=== PATIENT | male | born 1955 | race Caucasian/White ===

== ENCOUNTER 2017-07-29 15:36 | Inpatient (IN) | payer BC, OTHER ==
[2017-07-29] MEDS ORDERED: Ondansetron 4 MG/2 ML SDV IVPUSH ONE (16:08)
[2017-07-29] MEDS ORDERED: Sodium Chloride 0.9% 10 ML Syringe FLUSH PRN ×2 (16:08→17:38)
[2017-07-29] MEDS ORDERED: HYDROmorphone 1 MG/ML Syringe IVPUSH ONE ×3 (16:08→19:41)
[2017-07-29] MEDS ORDERED: Sodium Chloride 0.9% 1,000 ML IV SCH ×2 (16:15→20:45)
[2017-07-29] MEDS ORDERED: Iopamidol 612 MG/ML 150 ML Bottle IVPUSH ONE (17:38)
[2017-07-29] MEDS ORDERED: Diatrizoate Meglumine/Diatrizoate Sodium 37% 120 ML Bottle PO ONE (17:38)
--- NOTE | 2017-07-29 17:45 | EDM.PDOC ---
ED HPI GENERAL MEDICAL PROBLEM - General Chief Complaint: Abdominal Pain Stated Complaint: ABD PAIN Time Seen by Provider: 07/29/17 16:20 Source of Information: Reports: Patient History Limitations: Reports: No Limitations - History of Present Illness INITIAL COMMENTS - FREE TEXT/NARRATIVE: 62-year-old male presents for evaluation and treatment of abdominal pain. Patient reports abdominal pain began around 1 AM this morning. Reports it is primarily in the lower abdomen but states his entire abdomen is involved. Reports associated symptoms of a decreased appetite. No fevers, nausea or vomiting. States he's had some looser bowel this morning. No blood in his stool. Patient reports he's had diverticulitis twice in the past. The use records show that he was hospitalized in December 2014 for diverticulitis. Questionable perforation on CT. Patient reports that he had a colonoscopy. estimates it was about 3 years ago. Primary care provider is Dr. Fairbanks. Patient was reports he was ill first week of the month with influenza. Diagnosed with influenza type B. His symptoms have improved since then. Lower Abdominal Pain Score (Numeric/FACES): 10 - Related Data Allergies Allergy/AdvReac Type Severity Reaction Status Date / Time No Known Allergies Allergy Verified 07/29/17 15:50 Home Meds: Home Meds Multivitamin [Daily Multiple Vitamin] 1 tab PO DAILY 10/03/14 [History] Aspirin [Halfprin] 81 mg PO DAILY 01/22/15 [History] Psyllium with Sucrose [Metamucil] 1 packet PO DAILY 03/04/16 [History] Past Medical History HEENT History: Reports: Impaired Vision Respiratory History: Reports: PE Gastrointestinal History: Reports: Diverticulosis Other Gastrointestinal History: Diverticulosis Other Musculoskeletal History: broken back Endocrine/Metabolic History: Reports: Obesity/BMI 30+ - Past Surgical History Other HEENT Surgeries/Procedures: Pt wears glasses Musculoskeletal Surgical History: Reports: Knee Replacement Other Musculoskeletal Surgeries/Procedures:: Neck surgery, wrist surgery Social & Family History - Family History Family Medical History: Noncontributory - Tobacco Use Smoking Status *Q: Never Smoker Years of Tobacco use: 20 Packs/Tins Daily: 0.2 Used Tobacco, but Quit: No Month Tobacco Last Used: June 2014 Second Hand Smoke Exposure: No - Alcohol Use Days Per Week of Alcohol Use: 0 (remote hx of heavy EtOH use ) - Recreational Drug Use Recreational Drug Use: No - Living Situation & Occupation Living situation: Reports: with Significant Other Occupation: Employed ED ROS GENERAL - Review of Systems Review Of Systems: See Below Constitutional: Reports: Decreased Appetite. Denies: Fever, Chills GI/Abdominal: Reports: Abdominal Pain (lower abdomen). Denies: Constipation, Diarrhea, Hematochezia, Melena, Nausea, Vomiting : Reports: No Symptoms ED EXAM, GI/ABD - Physical Exam Exam: See Below Exam Limited By: No Limitations General Appearance: Alert, WD/WN, Moderate Distress, Obese Ears: Normal External Exam Nose: Normal Inspection Throat/Mouth: Normal Inspection, Normal Oropharynx, Normal Voice, No Airway Compromise Neck: Normal Inspection Respiratory/Chest: No Respiratory Distress, Lungs Clear, Normal Breath Sounds Cardiovascular: Normal Peripheral Pulses, Regular Rate, Rhythm, No Murmur GI/Abdominal Exam: Normal Bowel Sounds, Soft, Tender (generalized, greatest in the LLQ). No: Guarding, Rigid, Rebound Neurological: Alert, Oriented, Normal Cognition Psychiatric: Normal Affect, Normal Mood Skin Exam: Warm, Dry, Normal Color Course - Vital Signs Last Recorded V/S: Last Vital Signs Temp 37.6 C 07/29/17 15:45 Pulse 80 07/29/17 15:45 Resp 20 07/29/17 15:45 BP 142/83 H 07/29/17 15:45 Pulse Ox 97 07/29/17 15:45 - Orders/Labs/Meds Orders: Active Orders 24 hr Category Date Time Status Peripheral IV Care [RC] . DIRECTED Care 07/29/17 16:09 Active Abdomen Pelvis w Cont [CT] Stat Exams 07/29/17 16:13 Taken Levofloxacin/Dextrose 5%-Water [Levaquin in D5W 750 MG/ Med 07/29/17 19:41 Active 150 ML] 750 mg Premix Bag 1 bag IV ONETIME Sodium Chloride 0.9% [Normal Saline] 1,000 ml Med 07/29/17 16:15 Active IV ASDIRECTED Sodium Chloride 0.9% [Saline Flush] Med 07/29/17 16:08 Active 10 ml FLUSH ASDIRECTED PRN Sodium Chloride 0.9% [Saline Flush] Med 07/29/17 17:38 Active 10 ml FLUSH ONETIME PRN Peripheral IV Insertion Adult [OM.PC] Routine Oth 07/29/17 16:08 Ordered Medication Orders Sodium Chloride (Normal Saline) 1,000 mls @ 125 mls/hr IV ASDIRECTED JONNY Last Admin: 07/29/17 16:42 Dose: 125 mls/hr Levofloxacin/Dextrose 750 mg/ (Premix) 150 mls @ 100 mls/hr IV ONETIME ONE Stop: 07/29/17 21:10 Sodium Chloride (Saline Flush) 10 ml FLUSH ASDIRECTED PRN PRN Reason: Keep Vein Open Last Admin: 07/29/17 16:42 Dose: 10 ml Sodium Chloride (Saline Flush) 10 ml FLUSH ONETIME PRN PRN Reason: IV FLUSH Last Admin: 07/29/17 18:05 Dose: 10 ml Labs: Laboratory Tests 07/29/17 07/29/17 07/29/17 Range/Units 16:15 16:35 16:35 WBC 13.42 H (4.23-9.07) K/mm3 RBC 4.98 (4.63-6.08) M/mm3 Hgb 14.3 (13.7-17.5) gm/L Hct 42.4 (40.1-51.0) % MCV 85.1 (79.0-92.2) fl MCH 28.7 (25.7-32.2) pg MCHC 33.7 (32.2-35.5) g/dl RDW Std Deviation 41.9 (35.1-43.9) fL Plt Count 262 (163-337) K/mm3 MPV 9.1 L (9.4-12.3) fl Neutrophils % (Manual) 81 H (40-60) % Band Neutrophils % 0 (0-10) % Lymphocytes % (Manual) 18 L (20-40) % Atypical Lymphs % 0 % Monocytes % (Manual) 1 L (2-10) % Eosinophils % (Manual) 0 L (0.8-7.0) % Basophils % (Manual) 0 L (0.2-1.2) Platelet Estimate Adequate RBC Morph Comment Normal Sodium 139 (136-145) mEq/L Potassium 3.9 (3.5-5.1) mEq/L Chloride 105 (98-107) mEq/L Carbon Dioxide 24 (21-32) mEq/L Anion Gap 13.9 (5-15) BUN 12 (7-18) mg/dL Creatinine 1.1 (0.7-1.3) mg/dL Est Cr Clr Drug Dosing 78.38 mL/min Estimated GFR (MDRD) > 60 (>60) mL/min BUN/Creatinine Ratio 10.9 L (14-18) Glucose 101 (74-106) mg/dL Calcium 8.9 (8.5-10.1) mg/dL Total Bilirubin 0.7 (0.2-1.0) mg/dL AST 12 L (15-37) U/L ALT 35 (16-63) U/L Alkaline Phosphatase 39 L (46-116) U/L C-Reactive Protein 8.8 H* (<1.0) mg/dL Total Protein 7.0 (6.4-8.2) g/dl Albumin 3.8 (3.4-5.0) g/dl Globulin 3.2 gm/dL Albumin/Globulin Ratio 1.2 (1-2) Lipase 126 (73-393) U/L Urine Color Yellow (Yellow) Urine Appearance Clear (Clear) Urine pH 6.0 (5.0-8.0) Ur Specific [place] > or = 1.030 (1.005-1.030) Urine Protein Negative (Negative) Urine Glucose (UA) Negative (Negative) Urine Ketones Negative (Negative) Urine Occult Blood Negative (Negative) Urine Nitrite Negative (Negative) Urine Bilirubin Negative (Negative) Urine Urobilinogen 0.2 (0.2-1.0) Ur Leukocyte Esterase Negative (Negative) Urine RBC 0-5 (0-5) /hpf Urine WBC 0-5 (0-5) /hpf Ur Epithelial Cells 0-5 (0-5) /hpf Urine Bacteria Not seen (FEW) /hpf Urine Mucus Few (FEW) /hpf Meds: Medications Generic Name Dose Route Start Last Admin Trade Name Freq PRN Reason Stop Dose Admin Sodium Chloride 1,000 mls @ 125 mls/hr 07/29/17 16:15 07/29/17 16:42 Normal Saline IV 125 mls/hr ASDIRECTED JONNY Administration Levofloxacin/Dextrose 750 mg/ 150 mls @ 100 mls/hr 07/29/17 19:41 Premix IV 07/29/17 21:10 ONETIME ONE Sodium Chloride 10 ml 07/29/17 16:08 07/29/17 16:42 Saline Flush FLUSH 10 ml ASDIRECTED PRN Administration Keep Vein Open Sodium Chloride 10 ml 07/29/17 17:38 07/29/17 18:05 Saline Flush FLUSH 10 ml ONETIME PRN Administration IV FLUSH Discontinued Medications Generic Name Dose Route Start Last Admin Trade Name Freq PRN Reason Stop Dose Admin Diatrizoate Meglum/Diatrizoate Sod 120 ml 07/29/17 17:38 07/29/17 18:04 Gastrografin 37% PO 07/29/17 17:39 90 ml ONETIME ONE Administration Hydromorphone HCl 1 mg 07/29/17 16:08 07/29/17 16:41 Dilaudid IVPUSH 07/29/17 16:09 1 mg ONETIME ONE Administration Hydromorphone HCl 1 mg 07/29/17 17:39 07/29/17 17:50 Dilaudid IVPUSH 07/29/17 17:40 1 mg ONETIME ONE Administration Hydromorphone HCl 1 mg 07/29/17 19:41 07/29/17 19:48 Dilaudid IVPUSH 07/29/17 19:42 1 mg ONETIME ONE Administration Metronidazole 500 mg/ Premix 100 mls @ 100 mls/hr 07/29/17 19:33 07/29/17 19: 38 IV 07/29/17 20:32 100 mls/hr ONETIME ONE Administration Iopamidol 150 ml 07/29/17 17:38 07/29/17 18:04 Isovue-300 (61%) IVPUSH 07/29/17 17:39 125 ml ONETIME ONE Administration Ondansetron HCl 4 mg 07/29/17 16:08 07/29/17 16:40 Zofran IVPUSH 07/29/17 16:09 4 mg ONETIME ONE Administration - Radiology Interpretation Free Text/Narrative:: CT abdomen and pelvis Technique: Multiple axial sections were obtained from above the dome of the diaphragm inferiorly through the pubic symphysis. Intravenous and oral contrast has been given. Delayed images were also obtained through the bladder. Comparison: Previous abdominal and pelvic CT exam of 01/22/15 is available. Findings: Inflammatory change is identified near the junction of the sigmoid and rectum. Diverticuli are seen in this area and findings are compatible with diverticulitis. No abscess is seen at this time. Small portion of the visualized lung bases shows nothing acute. Small amount of reflux is noted within the distal esophagus. Liver shows no focal abnormality. Spleen appears within normal limits and adrenal glands show no nodule. Pancreas is within normal limits. Gallbladder contains no calcified gallstones. Kidneys show symmetric contrast enhancement without hydronephrosis or mass. Aorta shows no aneurysmal dilatation. No retroperitoneal adenopathy is seen. No other pelvic abnormality is seen. No free fluid or other inflammatory change is seen. Appendix is identified which appears normal. Delayed images shows contrast within the bladder. Bone window settings were reviewed shows scattered degenerative change throughout the spine with vacuum phenomena seen within the L4-5 disc. Impression: 1. Findings compatible with diverticulitis near the junction of the sigmoid and rectum. No abscess is seen at this time. 2. Other incidental findings. - Re-Assessments/Exams Free Text/Narrative Re-Assessment/Exam: 07/29/17 20:45 I reviewed the labs and imaging with the patient. He has required about a milligram Dilaudid about every hour for pain control. Discussed disposition. Given this is an uncomplicated case of diverticulitis he could potentially go home with antibiotics and pain medication. However, due to his pain he can also come in to the hospital. We decided to hospitalize. Case discussed with Dr. Mas, hospitalist on-call. Agrees to the admission. Patient is currently receiving Flagyl. Levaquin has been ordered. Departure - Departure Time of Disposition: 20:46 Disposition: Admitted As Inpatient 68 Condition: Fair Clinical Impression: Diverticulitis, Abdominal pain - Discharge Information - My Orders Last 24 Hours: My Active Orders 07/29/17 16:08 Sodium Chloride 0.9% [Saline Flush] 10 ml FLUSH ASDIRECTED PRN Peripheral IV Insertion Adult [OM.PC] Routine 07/29/17 16:09 Peripheral IV Care [RC] . DIRECTED 07/29/17 16:13 Abdomen Pelvis w Cont [CT] Stat 07/29/17 16:15 Sodium Chloride 0.9% [Normal Saline] 1,000 ml IV ASDIRECTED 07/29/17 17:38 Sodium Chloride 0.9% [Saline Flush] 10 ml FLUSH ONETIME PRN 07/29/17 19:41 Levofloxacin/Dextrose 5%-Water [Levaquin in D5W 750 MG/150 ML] 750 mg Premix Bag 1 bag IV ONETIME - Assessment/Plan Last 24 Hours: My Active Orders 07/29/17 16:08 Sodium Chloride 0.9% [Saline Flush] 10 ml FLUSH ASDIRECTED PRN Peripheral IV Insertion Adult [OM.PC] Routine 07/29/17 16:09 Peripheral IV Care [RC] . DIRECTED 07/29/17 16:13 Abdomen Pelvis w Cont [CT] Stat 07/29/17 16:15 Sodium Chloride 0.9% [Normal Saline] 1,000 ml IV ASDIRECTED 07/29/17 17:38 Sodium Chloride 0.9% [Saline Flush] 10 ml FLUSH ONETIME PRN 07/29/17 19:41 Levofloxacin/Dextrose 5%-Water [Levaquin in D5W 750 MG/150 ML] 750 mg Premix Bag 1 bag IV ONETIME
[2017-07-29] MEDS ORDERED: metroNIDAZOLE/Normal Saline 500 MG in Premix Bag 1 BAG IV ONE (19:33)
[2017-07-29] MEDS ORDERED: Levofloxacin/Dextrose 5%-Water 750 MG in Premix Bag 1 BAG IV ONE (19:41)
[2017-07-29] MEDS ORDERED: Ondansetron 4 MG Tab.DIS PO PRN (20:45)
[2017-07-29] MEDS ORDERED: Acetaminophen 325 MG Tab PO PRN (20:45)
[2017-07-29] MEDS ORDERED: Ondansetron 4 MG/2 ML SDV IV PRN (20:45)
--- NOTE | 2017-07-29 21:07 | PCM.HP ---
H&P History of Present Illness - General Date of Service: 07/29/17 Admit Problem/Dx: Admission Diagnosis/Problem Admission Diagnosis/Problem Diverticulitis Source of Information: Patient, Old Records, Provider, RN Notes Reviewed History Limitations: Reports: No Limitations - History of Present Illness Initial Comments - Free Text/Narative: Seferino López is a 62 yo male who presented to our ED today (07/29/17) with abdominal pain. He reports the pain began around 1 AM this morning. Pain is primarily located in the lower abdomen but it is entire abdomen does hurt occasionally. He has a decreased appetite but no fever, nausea, vomiting. He did have some looser stools this morning and there is no blood in his stool. He has had diverticulitis twice in the past, with his last hospitalization being here in December 2014. At that time it was a questionable perforation on CT scan. Reports he did have colonoscopy about 3 years ago. Reports he was ill during the beginning of June with influenza and the symptoms have resolved since then. In the ED temperature was 37.6 Celsius. Pulse 80. Respirations 20. Blood pressure 142/83. Pulse ox 97%. Labs are obtained: The VAC is elevated at 13.42. Hemoglobin and crit 14.3. Hematocrit good at 42.4. He is normocytic. Pulses were good at 260,000. Neutrophils were elevated at 81%. There is no bandemia. Sodium is 139. Potassium 3.9. Chloride 105. Carbon dioxide 24. Anion gap 13.9. BUN is 12. Creatinine 1.1. EGFR greater than 60. Glucose is 101. Calcium 8.9. Total bilirubin 0.7. Liver enzymes AST is 12, ALT 35, alkaline phosphatase 39. CRP is elevated at 8.8. Total protein 7.0. Albumin 3.8. Lipase 126. UA is negative. IV was established normal saline. 500 mg metronidazole and 750 mg Levaquin IV given. Zofran IVP is given for nausea and Dilaudid was given multiple times for pain. CT of the abdomen and pelvis is obtained and interpreted as "1. Findings panel with diverticulitis in the junction of sigmoid and rectum. No abscess is seen at this time. 2. Other incidental findings." He does have a history of impaired vision, prior PE, diverticulosis, and obesity. He is a former smoker. He does have a history of heavy EtOH use. He subsequently admitted to the medical floor. He is a full code. His PCP is Dr. Kerns at [facility] here in [place]. Onset of Symptoms: Reports: Today Symptom Onset Date: 07/29/17 Symptom Onset Time: 01:00 Duration of Symptoms: Reports: Hour(s):, Constant, Getting Worse Location: Reports: Abdomen Severity: Severe Improves with: Reports: None Worsens with: Reports: Movement Lower Abdominal Pain Score (Numeric/FACES): 2 - Related Data Allergies/Adverse Reactions: Allergies Allergy/AdvReac Type Severity Reaction Status Date / Time No Known Allergies Allergy Verified 07/29/17 15:50 Home Medications: Home Meds Multivitamin [Daily Multiple Vitamin] 1 tab PO DAILY 10/03/14 [History] Aspirin [Halfprin] 81 mg PO DAILY 01/22/15 [History] Psyllium with Sucrose [Metamucil] 1 packet PO DAILY 03/04/16 [History] Past Medical History HEENT History: Reports: Impaired Vision Respiratory History: Reports: PE Gastrointestinal History: Reports: Diverticulosis Other Gastrointestinal History: Diverticulosis Other Musculoskeletal History: broken back Endocrine/Metabolic History: Reports: Obesity/BMI 30+ - Past Surgical History Other HEENT Surgeries/Procedures: Pt wears glasses Musculoskeletal Surgical History: Reports: Knee Replacement Other Musculoskeletal Surgeries/Procedures:: Neck surgery, wrist surgery Social & Family History - Family History Family Medical History: Noncontributory - Tobacco Use Smoking Status *Q: Never Smoker Years of Tobacco use: 20 Packs/Tins Daily: 0.2 Used Tobacco, but Quit: No Month Tobacco Last Used: June 2014 Second Hand Smoke Exposure: No - Alcohol Use Days Per Week of Alcohol Use: 0 (remote hx of heavy EtOH use ) - Recreational Drug Use Recreational Drug Use: No - Living Situation & Occupation Living situation: Reports: with Significant Other Occupation: Employed H&P Review of Systems - Review of Systems: Review Of Systems: See Below General: Reports: Decreased Appetite. Denies: Fever, Chills, Malaise, Weakness , Diaphoresis, Weight Loss, Weight Gain HEENT: Reports: No Symptoms. Denies: Ear Pain, Eye Pain, Headaches, Rhinitis, Sinus Congestion, Sore Throat, Visual Changes Pulmonary: Reports: No Symptoms. Denies: Shortness of Breath, Wheezing, Pleuritic Chest Pain, Cough, Sputum Cardiovascular: Reports: No Symptoms. Denies: Chest Pain, Palpitations, Dyspnea on Exertion, Edema, Syncope Gastrointestinal: Reports: Abdominal Pain, Decreased Appetite, Mucous in Stool. Denies: Constipation, Diarrhea, Nausea, Stool Incontinence, Vomiting Genitourinary: Reports: No Symptoms. Denies: Dysuria, Frequency, Pain, Urgency , Retention, Flank Pain Musculoskeletal: Reports: No Symptoms Skin: Reports: No Symptoms Psychiatric: Reports: No Symptoms Neurological: Reports: No Symptoms. Denies: Confusion, Dizziness, Headache, Numbness, Pre-Existing Deficit, Tingling, Trouble Speaking, Difficulty Walking, Weakness Hematologic/Lymphatic: Reports: No Symptoms. Denies: Anemia, Easy Bleeding, Easy Bruising Immunologic: Reports: No Symptoms Exam - Exam Exam: See Below - Vital Signs Vital Signs: Last Vital Signs Temp 99.7 F 07/29/17 15:45 Pulse 80 07/29/17 15:45 Resp 20 07/29/17 15:45 BP 142/83 H 07/29/17 15:45 Pulse Ox 97 07/29/17 15:45 Weight: 246 lb - Exam General: Alert, Oriented, Cooperative. No: Mild Distress HEENT: PERRLA, Hearing Intact, Mucosa Moist & [place], Nares Patent, Normal Nasal Septum, Posterior Pharynx Clear, Conjunctiva Clear, EOMI, EACs Clear, TMs Clear Neck: Supple, Trachea Midline. No: JVD Lungs: Clear to Auscultation, Normal Respiratory Effort. No: Crackles, Rales, Rhonchi, Rub, Stridor, Wheezing Cardiovascular: Regular Rate, Regular Rhythm GI/Abdominal Exam: Normal Bowel Sounds, Soft, Guarding, Tender (Generalized LLQ> RLQ>upper quadrants ) (Male) Exam: Deferred Rectal (Males) Exam: Deferred Back Exam: Normal Inspection, Full Range of Motion Extremities: Normal Inspection, Normal Range of Motion, Non-Tender, No Pedal Edema, Normal Capillary Refill Peripheral Pulses: 4+: Radial (L), Radial (R), Popliteal (R), Posterior Tibial ( L), Posterior Tibial (R), Dorsalis Pedis (L), Dorsalis Pedis (R) Skin: Warm, Dry, Intact Neurological: Cranial Nerves Intact (Grossly ) Neuro Extensive - Mental Status: Alert, Oriented x3, Normal Mood/Affect, Normal Cognition, Memory Intact Psychiatric: Alert, Normal Affect, Normal Mood - Patient Data Result Diagrams: 07/29/17 16:35 07/29/17 16:35 *Q Meaningful Use (ADM) - VTE *Q VTE Criteria *Q: - Stroke *Q Stroke Criteria *Q: - AMI *Q AMI Criteria *Q: - Problem List (1) Diverticulitis SNOMED Code(s): 157045757 ICD Code: K57.92 - DVTRCLI OF INTEST, PART UNSP, W/O PERF OR ABSCESS W/O BLEED Status: Acute Priority: High Current Visit: Yes (2) Abdominal pain SNOMED Code(s): 55954758 ICD Code: R10.9 - UNSPECIFIED ABDOMINAL PAIN Status: Acute Priority: High Current Visit: Yes Qualifiers: Abdominal location: generalized Qualified Code(s): R10.84 - Generalized abdominal pain (3) Obesity (BMI 30.0-34.9) SNOMED Code(s): 894560886 ICD Code: E66.9 - OBESITY, UNSPECIFIED Status: Chronic Priority: Low Current Visit: No (4) History of pulmonary embolus (PE) SNOMED Code(s): 989006397 ICD Code: Z86.711 - PERSONAL HISTORY OF PULMONARY EMBOLISM Status: Chronic Priority: Low Current Visit: No Problem List Initiated/Reviewed/Updated: Yes Orders Last 24hrs: Active Orders 24 hr Category Date Time Status Patient Status [ADT] Routine ADT 07/29/17 20:47 Active Ambulate [RC] ASDIRECTED Care 07/29/17 20:45 Active Height and Weight [RC] DAILY Care 07/29/17 20:45 Active Intake and Output [RC] QSHIFT Care 07/29/17 20:46 Active Oxygen Therapy [RC] PRN Care 07/29/17 20:45 Active Pulse Oximetry [RC] PRN Care 07/29/17 20:46 Active Up ad Mora [RC] ASDIRECTED Care 07/29/17 20:45 Active VTE/DVT Education [RC] PER UNIT ROUTINE Care 07/29/17 20:45 Active Vital Signs [RC] Q4H Care 07/29/17 20:45 Active Consult to Case Management [CONS] Routine Cons 07/29/17 20:45 Active PT Evaluation and Treatment [CONS] Routine Cons 07/29/17 20:45 Active Nothing per Oral Now Diet [DIET] Diet 07/29/17 Dinner Active Acetaminophen [Tylenol] Med 07/29/17 20:45 Ordered 650 mg PO Q4H PRN Acetaminophen/HYDROcodone [[place] 325-5 MG] Med 07/29/17 20:45 Ordered 1 tab PO Q4H PRN Enoxaparin [Lovenox] Med 07/30/17 09:00 Ordered 40 mg SUBCUT DAILY HYDROmorphone [Dilaudid] Med 07/29/17 20:45 Ordered 0.5 mg IVPUSH Q2H PRN Levofloxacin/Dextrose 5%-Water [Levaquin in D5W 500 MG/ Med 07/30/17 16:00 Ordered 100 ML] 500 mg Premix Bag 1 bag IV Q24H Ondansetron [Zofran ODT] Med 07/29/17 20:45 Ordered 4 mg PO Q6H PRN Ondansetron [Zofran] Med 07/29/17 20:45 Ordered 4 mg IV Q6H PRN Saccharomyces Boulardii [Florastor] Med 07/29/17 21:00 Ordered 250 mg PO BID Sodium Chloride 0.9% [Normal Saline] 1,000 ml Med 07/29/17 20:45 Ordered IV ASDIRECTED Temazepam [Restoril] Med 07/29/17 20:45 Ordered 15 mg PO BEDTIME PRN metroNIDAZOLE/Normal Saline [Flagyl 500 MG in NS 100 ML Med 07/30/17 00:00 Ordered ] 500 mg Premix Bag 1 bag IV Q6HR Resuscitation Status Routine Resus Stat 07/29/17 20:45 Ordered Medication Orders Acetaminophen (Tylenol) 650 mg PO Q4H PRN PRN Reason: Pain (Mild 1-3)/fever Hydrocodone Bitart/Acetaminophen ([place] 325-5 Mg) 1 tab PO Q4H PRN PRN Reason: Pain (moderate 4-6) Enoxaparin Sodium (Lovenox) 40 mg SUBCUT DAILY JONNY Hydromorphone HCl (Dilaudid) 0.5 mg IVPUSH Q2H PRN PRN Reason: Pain (severe 7-10) Levofloxacin/Dextrose 750 mg/ (Premix) 150 mls @ 100 mls/hr IV ONETIME ONE Stop: 07/29/17 21:10 Levofloxacin/Dextrose 500 mg/ (Premix) 100 mls @ 100 mls/hr IV Q24H JONNY Metronidazole 500 mg/ Premix 100 mls @ 100 mls/hr IV Q6HR JONNY Sodium Chloride (Normal Saline) 1,000 mls @ 100 mls/hr IV ASDIRECTED JONNY Stop: 07/31/17 06:44 Ondansetron HCl (Zofran Odt) 4 mg PO Q6H PRN PRN Reason: nausea, able to take PO Ondansetron HCl (Zofran) 4 mg IV Q6H PRN PRN Reason: Nausea/Vomiting Saccharomyces Boulardii (Florastor) 250 mg PO BID JONNY Sodium Chloride (Saline Flush) 10 ml FLUSH ASDIRECTED PRN PRN Reason: Keep Vein Open Last Admin: 07/29/17 16:42 Dose: 10 ml Sodium Chloride (Saline Flush) 10 ml FLUSH ONETIME PRN PRN Reason: IV FLUSH Last Admin: 07/29/17 18:05 Dose: 10 ml Temazepam (Restoril) 15 mg PO BEDTIME PRN PRN Reason: Sleep Assessment/Plan Comment:: I/P: Acute: Diverticulitis -Hx/o diverticulits x2 in past - last hospitalized here in December 2014 -Abdominal pain that started around 1 AM - LLQ>RLQ>upper quadrants -Afebrile -CT suggests diverticulitis near junction of rectum and sigmoid colon, no abscess -WBC 13.42, CRP 8.8 -Reported colonoscopy 3 years ago -Levaquin Q24hr -Metronidazole Q6hr -Probiotic BID -NPO except ice chips, water sips, and meds -Ambulate -IV fluids as ordered -Pain medications as ordered -Antiemetics as ordered Chronic: Obesity - BMI 33.4 Hx/o PE Plan: Admit to medical floor CM for discharge planning PT for ambulation Other orders as indicated above DVT/PE prophylaxis: Lovenox Routine AM Labs Home meds as ordered Code status: full code; PCP: Dr. Kerns at [facility] here in [place]
[2017-07-29] MEDS: Saccharomyces Boulardii (Probiotic) 250 MG Cap PO SCH (21:24)
[2017-07-29] MEDS: Temazepam 15 MG Cap PO PRN (21:25)
[2017-07-29] MEDS: Acetaminophen/HYDROcodone 325-5 MG Tab PO PRN (21:33)
[2017-07-29] MEDS: HYDROmorphone 1 MG/ML Syringe IVPUSH PRN (21:34)
[2017-07-30] MEDS: HYDROmorphone 1 MG/ML Syringe IVPUSH PRN ×5 (00:37→20:22)
[2017-07-30] MEDS: metroNIDAZOLE/Normal Saline 500 MG in Premix Bag 1 BAG IV SCH ×4 (00:44→17:56)
[2017-07-30] MEDS: Acetaminophen/HYDROcodone 325-5 MG Tab PO PRN (05:33)
--- NOTE | 2017-07-30 08:17 | CT ---
CT abdomen and pelvis Technique: Multiple axial sections were obtained from above the dome of the diaphragm inferiorly through the pubic symphysis. Intravenous and oral contrast has been given. Delayed images were also obtained through the bladder. Comparison: Previous abdominal and pelvic CT exam of 01/22/15 is available. Findings: Inflammatory change is identified near the junction of the sigmoid and rectum. Diverticuli are seen in this area and findings are compatible with diverticulitis. No abscess is seen at this time. Small portion of the visualized lung bases shows nothing acute. Small amount of reflux is noted within the distal esophagus. Liver shows no focal abnormality. Spleen appears within normal limits and adrenal glands show no nodule. Pancreas is within normal limits. Gallbladder contains no calcified gallstones. Kidneys show symmetric contrast enhancement without hydronephrosis or mass. Aorta shows no aneurysmal dilatation. No retroperitoneal adenopathy is seen. No other pelvic abnormality is seen. No free fluid or other inflammatory change is seen. Appendix is identified which appears normal. Delayed images shows contrast within the bladder. Bone window settings were reviewed shows scattered degenerative change throughout the spine with vacuum phenomena seen within the L4-5 disc. Impression: 1. Findings compatible with diverticulitis near the junction of the sigmoid and rectum. No abscess is seen at this time. 2. Other incidental findings. Diagnostic code #3
--- NOTE | 2017-07-30 08:20 | PCM.PN ---
- General Info Date of Service: 07/30/17 Admission Dx/Problem (Free Text): Admission Diagnosis/Problem Admission Diagnosis/Problem Diverticulitis Subjective Update: Follow Up Functional Status: Reports: Tolerating Diet, Ambulating, Urinating. Denies: Pain Controlled, New Symptoms Pain Score: 5 - Review of Systems General: Denies: Fever, Weakness, Fatigue, Malaise, Chills HEENT: Reports: No Symptoms Pulmonary: Denies: Shortness of Breath Cardiovascular: Denies: Chest Pain Gastrointestinal: Reports: Abdominal Pain, Flatus. Denies: Constipation, Decreased Appetite, Diarrhea, Difficulty Swallowing, Nausea, Vomiting Genitourinary: Reports: No Symptoms Musculoskeletal: Reports: No Symptoms Skin: Denies: Cyanosis, Mottled, Pallor, Diaphoresis, Pruritis, Rash Neurological: Denies: Confusion, Difficulty Walking, Weakness, Gait Disturbance Psychiatric: Denies: Confusion, Depression, Mood Lability, Anxiety, Agitation, Hallucinations Systems Review Comment:: No significant or acute issues. He slept okay. His pain is not much controlled . He reports no GI complaints. He is afebrile with mild leukoctyosis (WBC 13.12). - Patient Data Vitals - Most Recent: Last Vital Signs Temp 36.8 C 07/30/17 07:36 Pulse 72 07/30/17 07:36 Resp 24 H 07/30/17 07:36 BP 133/80 07/30/17 07:36 Pulse Ox 93 L 07/30/17 07:36 Weight - Most Recent: 113.534 kg I&O - Last 24 Hours: Intake & Output 07/29/17 07/30/17 07/30/17 22:59 06:59 14:59 Intake Total 774 Output Total 900 Balance -126 Lab Results Last 24 Hours: Laboratory Results - last 24 hr 07/30/17 07/30/17 Range/Units 06:12 06:12 WBC 13.12 H (4.23-9.07) K/mm3 RBC 4.48 L (4.63-6.08) M/mm3 Hgb 12.9 L (13.7-17.5) gm/L Hct 38.9 L (40.1-51.0) % MCV 86.8 (79.0-92.2) fl MCH 28.8 (25.7-32.2) pg MCHC 33.2 (32.2-35.5) g/dl RDW Std Deviation 42.6 (35.1-43.9) fL Plt Count 221 (163-337) K/mm3 MPV 9.4 (9.4-12.3) fl Neut % (Auto) 78.7 H (34.0-67.9) % Lymph % (Auto) 10.4 L (21.8-53.1) % [place] % (Auto) 9.8 (5.3-12.2) % Eos % (Auto) 0.7 L (0.8-7.0) Baso % (Auto) 0.2 (0.1-1.2) % Neut # (Auto) 10.34 H (1.78-5.38) K/mm3 Lymph # (Auto) 1.36 (1.32-3.57) K/mm3 [place] # (Auto) 1.28 H (0.30-0.82) K/mm3 Eos # (Auto) 0.09 (0.04-0.54) K/mm3 Baso # (Auto) 0.03 (0.01-0.08) K/mm3 Sodium 136 (136-145) mEq/L Potassium 3.8 (3.5-5.1) mEq/L Chloride 104 (98-107) mEq/L Carbon Dioxide 24 (21-32) mEq/L Anion Gap 11.8 (5-15) BUN 12 (7-18) mg/dL Creatinine 0.9 (0.7-1.3) mg/dL Est Cr Clr Drug Dosing 92.96 mL/min Estimated GFR (MDRD) > 60 (>60) mL/min BUN/Creatinine Ratio 13.3 L (14-18) Glucose 106 (74-106) mg/dL Calcium 8.2 L (8.5-10.1) mg/dL Magnesium 1.9 (1.8-2.4) mg/dl C-Reactive Protein 16.5 H* (<1.0) mg/dL Med Orders - Current: Current Medications Acetaminophen (Tylenol) 650 mg PO Q4H PRN PRN Reason: Pain (Mild 1-3)/fever Hydrocodone Bitart/Acetaminophen ([place] 325-5 Mg) 1 tab PO Q4H PRN PRN Reason: Pain (moderate 4-6) Last Admin: 07/30/17 05:33 Dose: 1 tab Aspirin (Halfprin) 81 mg PO DAILY [facility] Enoxaparin Sodium (Lovenox) 40 mg SUBCUT DAILY [facility] Famotidine (Pepcid) 20 mg PO BID [facility] Hydromorphone HCl (Dilaudid) 0.5 mg IVPUSH Q2H PRN PRN Reason: Pain (severe 7-10) Last Admin: 07/30/17 05:34 Dose: 0.5 mg Levofloxacin/Dextrose 500 mg/ (Premix) 100 mls @ 100 mls/hr IV Q24H [facility] Metronidazole 500 mg/ Premix 100 mls @ 100 mls/hr IV Q6HR [facility] Last Admin: 07/30/17 05:13 Dose: 100 mls/hr Sodium Chloride (Normal Saline) 1,000 mls @ 100 mls/hr IV ASDIRECTED [facility] Stop: 07/31/17 06:44 Last Admin: 07/30/17 01:58 Dose: 100 mls/hr Influenza Virus Vaccine (Flulaval Quad [id number]) 60 mcg IM .ONCE ONE Stop: 07/30/17 10:01 Magnesium Sulfate (Pharmacy To Dose - Magnesium Replacement) 1 dose .XX ASDIRECTED [facility] Ondansetron HCl (Zofran Odt) 4 mg PO Q6H PRN PRN Reason: nausea, able to take PO Ondansetron HCl (Zofran) 4 mg IV Q6H PRN PRN Reason: Nausea/Vomiting Potassium Chloride (Pharmacy To Dose - Potassium Replacement) 1 dose .XX ASDIRECTED [facility] Saccharomyces Boulardii (Florastor) 250 mg PO BID [facility] Last Admin: 07/29/17 21:24 Dose: 250 mg Sodium Chloride (Saline Flush) 10 ml FLUSH ASDIRECTED PRN PRN Reason: Keep Vein Open Last Admin: 07/29/17 16:42 Dose: 10 ml Sodium Chloride (Saline Flush) 10 ml FLUSH ONETIME PRN PRN Reason: IV FLUSH Last Admin: 07/29/17 18:05 Dose: 10 ml Temazepam (Restoril) 15 mg PO BEDTIME PRN PRN Reason: Sleep Last Admin: 07/29/17 21:25 Dose: 15 mg Discontinued Medications Diatrizoate Meglum/Diatrizoate Sod (Gastrografin 37%) 120 ml PO ONETIME ONE Stop: 07/29/17 17:39 Last Admin: 07/29/17 18:04 Dose: 90 ml Hydromorphone HCl (Dilaudid) 1 mg IVPUSH ONETIME ONE Stop: 07/29/17 16:09 Last Admin: 07/29/17 16:41 Dose: 1 mg Hydromorphone HCl (Dilaudid) 1 mg IVPUSH ONETIME ONE Stop: 07/29/17 17:40 Last Admin: 07/29/17 17:50 Dose: 1 mg Hydromorphone HCl (Dilaudid) 1 mg IVPUSH ONETIME ONE Stop: 07/29/17 19:42 Last Admin: 07/29/17 19:48 Dose: 1 mg Sodium Chloride (Normal Saline) 1,000 mls @ 125 mls/hr IV ASDIRECTED [facility] Last Admin: 07/29/17 16:42 Dose: 125 mls/hr Metronidazole 500 mg/ Premix 100 mls @ 100 mls/hr IV ONETIME ONE Stop: 07/29/17 20:32 Last Admin: 07/29/17 19:38 Dose: 100 mls/hr Levofloxacin/Dextrose 750 mg/ (Premix) 150 mls @ 100 mls/hr IV ONETIME ONE Stop: 07/29/17 21:10 Last Admin: 07/29/17 21:26 Dose: 100 mls/hr Influenza Virus Vaccine (Pharmacy To Dose - Influenza Vaccine) 1 each IM ONETIME ONE Stop: 07/30/17 05:26 Iopamidol (Isovue-300 (61%)) 150 ml IVPUSH ONETIME ONE Stop: 07/29/17 17:39 Last Admin: 07/29/17 18:04 Dose: 125 ml Ondansetron HCl (Zofran) 4 mg IVPUSH ONETIME ONE Stop: 07/29/17 16:09 Last Admin: 07/29/17 16:40 Dose: 4 mg - Exam General: Alert, Oriented, Cooperative, No Acute Distress HEENT: Pupils Equal, Pupils Reactive, EOMI, Mucous Membr. Moist/[place] Neck: Supple, Trachea Midline, No JVD, No Thyromegaly Lungs: Clear to Auscultation, Normal Respiratory Effort Cardiovascular: Regular Rate, Regular Rhythm GI/Abdominal Exam: Normal Bowel Sounds, Soft, Non-Tender, No Organomegaly, No Distention, No Abnormal Bruit, No Mass, Tender (right lower quadrant). No: Guarding, Rigid, Rebound (Male) Exam: Deferred Back Exam: Normal Inspection, Decreased Range of Motion Extremities: Normal Inspection, Normal Range of Motion, Non-Tender, No Pedal Edema, Normal Capillary Refill Peripheral Pulses: 2+: Dorsalis Pedis (L), Dorsalis Pedis (R) Skin: Warm, Dry, Intact Neurological: No New Focal Deficit Psy/Mental Status: Alert, Normal Affect, Normal Mood - Problem List Review Problem List Initiated/Reviewed/Updated: Yes - My Orders Last 24 Hours: My Active Orders 07/30/17 10:00 FLU Vacc [id number](6MOS UP)/PF [Flulaval Quad [id number]] 60 mcg IM .ONCE ONE - Plan Plan:: I/P: Acute: Diverticulitis -Hx/o diverticulits x2 in past - last hospitalized here in December 2014 -Abdominal pain that started around 1 AM - LLQ>RLQ>upper quadrants -Remains afebrile w/i mild leukocytosis -CT suggests diverticulitis near junction of rectum and sigmoid colon, no abscess -WBC 13.42--> 13.12, CRP 8.8--> 16.5 -Reported colonoscopy 3 years ago -Continue daily IV Levaquin 500 mg/Flagyl 500 mg IV Q6H and Probiotic -Start clear liquid and advance as tolerated -Ambulate as tolerated -D/c IV fluids once he is tolerating diet -Continue Pain medications and Antiemetics Chronic: Obesity - BMI 33.4 Hx/o PE Plan: He is clinically stable Continue current treatment Routine AM Labs Adjusted pain medication regimen Encourage to Ambulate as tolerated Other orders as indicated above DVT/PE prophylaxis: Lovenox CM for discharge planning Code status: full code; PCP: Dr. Kerns at [facility] here in [place]
[2017-07-30] MEDS ORDERED: Magnesium Oxide 400 MG Tab PO ONE (09:00)
[2017-07-30] MEDS: oxyCODONE 5 MG Tab PO PRN ×2 (09:21→16:32)
[2017-07-30] MEDS: Aspirin 81 MG Tab.EC PO SCH (09:23)
[2017-07-30] MEDS: Famotidine 20 MG Tab PO SCH ×2 (09:23→20:19)
[2017-07-30] MEDS: Potassium Chloride 20 MEQ Tab.ER PO SCH ×2 (09:23→12:33)
[2017-07-30] MEDS: Enoxaparin 40 MG/0.4 ML Syringe SUBCUT SCH (09:24)
[2017-07-30] MEDS: Saccharomyces Boulardii (Probiotic) 250 MG Cap PO SCH ×2 (09:24→20:20)
[2017-07-30] MEDS ORDERED: FLU Vacc QS 2017-18 (6mos UP)/PF 60 MCG/0.5 ML Syringe IM ONE (10:00)
[2017-07-30] MEDS: Hypromellose 0.5% Ophth Soln 15 ML Bottle EYEBOTH PRN ×3 (11:17→15:57)
[2017-07-30] MEDS: Dextrose 5%-0.9% NaCl 1,000 ML IV SCH (15:50)
[2017-07-30] MEDS: Levofloxacin/Dextrose 5%-Water 500 MG in Premix Bag 1 BAG IV SCH (16:33)
[2017-07-30] MEDS: Temazepam 15 MG Cap PO PRN (20:21)
--- NOTE | 2017-07-31 00:09 | PCM.PN ---
- General Info Date of Service: 07/31/17 Admission Dx/Problem (Free Text): Admission Diagnosis/Problem Admission Diagnosis/Problem Diverticulitis Subjective Update: Follow Up Functional Status: Reports: Pain Controlled, Ambulating, Urinating. Denies: New Symptoms - Review of Systems General: Denies: Fever, Weakness, Fatigue, Malaise, Chills HEENT: Reports: No Symptoms Pulmonary: Denies: Shortness of Breath Cardiovascular: Denies: Chest Pain Gastrointestinal: Reports: Flatus. Denies: Abdominal Pain, Constipation, Decreased Appetite, Diarrhea, Difficulty Swallowing, Hematochezia, Melena, Nausea, Vomiting Genitourinary: Reports: No Symptoms Musculoskeletal: Reports: No Symptoms Skin: Denies: Cyanosis, Jaundice, Mottled, Pallor, Diaphoresis Neurological: Denies: Confusion, Difficulty Walking, Weakness, Gait Disturbance Psychiatric: Denies: Depression, Anxiety, Agitation, Hallucinations Systems Review Comment:: No overnight issues and slept pretty good. He failed clear liquids yesterday. However he seems better this morning. No GI issues and pain is controlled. He did complain of dry and itchy eyes. He has been getting eye drops but not his usual product he typically use at home. Patient remains afebrile and now w/o leukocytosis but his CRP is trending up. He has no other complaints this am. - Patient Data Vitals - Most Recent: Last Vital Signs Temp 36.6 C 07/30/17 19:12 Pulse 68 07/30/17 19:15 Resp 16 07/30/17 19:12 BP 110/71 07/30/17 19:15 Pulse Ox 94 L 07/30/17 20:46 Weight - Most Recent: 113.534 kg I&O - Last 24 Hours: Intake & Output 07/30/17 07/30/17 07/31/17 14:59 22:59 06:59 Intake Total 330 920 Output Total 1150 Balance 330 -230 Lab Results Last 24 Hours: Laboratory Results - last 24 hr 07/30/17 07/30/17 Range/Units 06:12 06:12 WBC 13.12 H (4.23-9.07) K/mm3 RBC 4.48 L (4.63-6.08) M/mm3 Hgb 12.9 L (13.7-17.5) gm/L Hct 38.9 L (40.1-51.0) % MCV 86.8 (79.0-92.2) fl MCH 28.8 (25.7-32.2) pg MCHC 33.2 (32.2-35.5) g/dl RDW Std Deviation 42.6 (35.1-43.9) fL Plt Count 221 (163-337) K/mm3 MPV 9.4 (9.4-12.3) fl Neut % (Auto) 78.7 H (34.0-67.9) % Lymph % (Auto) 10.4 L (21.8-53.1) % [place] % (Auto) 9.8 (5.3-12.2) % Eos % (Auto) 0.7 L (0.8-7.0) Baso % (Auto) 0.2 (0.1-1.2) % Neut # (Auto) 10.34 H (1.78-5.38) K/mm3 Lymph # (Auto) 1.36 (1.32-3.57) K/mm3 [place] # (Auto) 1.28 H (0.30-0.82) K/mm3 Eos # (Auto) 0.09 (0.04-0.54) K/mm3 Baso # (Auto) 0.03 (0.01-0.08) K/mm3 Sodium 136 (136-145) mEq/L Potassium 3.8 (3.5-5.1) mEq/L Chloride 104 (98-107) mEq/L Carbon Dioxide 24 (21-32) mEq/L Anion Gap 11.8 (5-15) BUN 12 (7-18) mg/dL Creatinine 0.9 (0.7-1.3) mg/dL Est Cr Clr Drug Dosing 92.96 mL/min Estimated GFR (MDRD) > 60 (>60) mL/min BUN/Creatinine Ratio 13.3 L (14-18) Glucose 106 (74-106) mg/dL Calcium 8.2 L (8.5-10.1) mg/dL Magnesium 1.9 (1.8-2.4) mg/dl C-Reactive Protein 16.5 H* (<1.0) mg/dL Med Orders - Current: Current Medications Acetaminophen (Tylenol) 650 mg PO Q4H PRN PRN Reason: Pain (Mild 1-3)/fever Artificial Tears (Isopto Tears 0.5% Ophth Soln) 0 ml EYEBOTH Q1H PRN PRN Reason: Dry Eyes Last Admin: 07/30/17 15:57 Dose: 1 drop Aspirin (Halfprin) 81 mg PO DAILY [facility] Last Admin: 07/30/17 09:23 Dose: 81 mg Enoxaparin Sodium (Lovenox) 40 mg SUBCUT DAILY [facility] Last Admin: 07/30/17 09:24 Dose: 40 mg Famotidine (Pepcid) 20 mg PO BID [facility] Last Admin: 07/30/17 20:19 Dose: 20 mg Hydromorphone HCl (Dilaudid) 1 mg IVPUSH Q4H PRN PRN Reason: Pain (severe 7-10) Last Admin: 07/30/17 20:22 Dose: 1 mg Levofloxacin/Dextrose 500 mg/ (Premix) 100 mls @ 100 mls/hr IV Q24H [facility] Last Admin: 07/30/17 16:33 Dose: 100 mls/hr Metronidazole 500 mg/ Premix 100 mls @ 100 mls/hr IV Q6HR [facility] Last Admin: 07/30/17 17:56 Dose: 100 mls/hr Dextrose/Sodium Chloride (Dextrose 5%-Normal Saline) 1,000 mls @ 125 mls/hr IV ASDIRECTED [facility] Last Admin: 07/30/17 15:50 Dose: 125 mls/hr Magnesium Sulfate (Pharmacy To Dose - Magnesium Replacement) 1 dose .XX ASDIRECTED [facility] Ondansetron HCl (Zofran Odt) 4 mg PO Q6H PRN PRN Reason: nausea, able to take PO Ondansetron HCl (Zofran) 4 mg IV Q6H PRN PRN Reason: Nausea/Vomiting Last Admin: 07/30/17 13:15 Dose: 4 mg Oxycodone HCl (Oxycodone) 10 mg PO Q6H PRN PRN Reason: Pain Last Admin: 07/30/17 16:32 Dose: 10 mg Potassium Chloride (Pharmacy To Dose - Potassium Replacement) 1 dose .XX ASDIRECTED [facility] Saccharomyces Boulardii (Florastor) 250 mg PO BID [facility] Last Admin: 07/30/17 20:20 Dose: 250 mg Sodium Chloride (Saline Flush) 10 ml FLUSH ASDIRECTED PRN PRN Reason: Keep Vein Open Last Admin: 07/29/17 16:42 Dose: 10 ml Sodium Chloride (Saline Flush) 10 ml FLUSH ONETIME PRN PRN Reason: IV FLUSH Last Admin: 07/29/17 18:05 Dose: 10 ml Temazepam (Restoril) 15 mg PO BEDTIME PRN PRN Reason: Sleep Last Admin: 07/30/17 20:21 Dose: 15 mg Discontinued Medications Hydrocodone Bitart/Acetaminophen ([place] 325-5 Mg) 1 tab PO Q4H PRN PRN Reason: Pain (moderate 4-6) Last Admin: 07/30/17 05:33 Dose: 1 tab Diatrizoate Meglum/Diatrizoate Sod (Gastrografin 37%) 120 ml PO ONETIME ONE Stop: 07/29/17 17:39 Last Admin: 07/29/17 18:04 Dose: 90 ml Hydromorphone HCl (Dilaudid) 1 mg IVPUSH ONETIME ONE Stop: 07/29/17 16:09 Last Admin: 07/29/17 16:41 Dose: 1 mg Hydromorphone HCl (Dilaudid) 1 mg IVPUSH ONETIME ONE Stop: 07/29/17 17:40 Last Admin: 07/29/17 17:50 Dose: 1 mg Hydromorphone HCl (Dilaudid) 1 mg IVPUSH ONETIME ONE Stop: 07/29/17 19:42 Last Admin: 07/29/17 19:48 Dose: 1 mg Hydromorphone HCl (Dilaudid) 0.5 mg IVPUSH Q2H PRN PRN Reason: Pain (severe 7-10) Last Admin: 07/30/17 05:34 Dose: 0.5 mg Sodium Chloride (Normal Saline) 1,000 mls @ 125 mls/hr IV ASDIRECTED [facility] Last Admin: 07/29/17 16:42 Dose: 125 mls/hr Metronidazole 500 mg/ Premix 100 mls @ 100 mls/hr IV ONETIME ONE Stop: 07/29/17 20:32 Last Admin: 07/29/17 19:38 Dose: 100 mls/hr Levofloxacin/Dextrose 750 mg/ (Premix) 150 mls @ 100 mls/hr IV ONETIME ONE Stop: 07/29/17 21:10 Last Admin: 07/29/17 21:26 Dose: 100 mls/hr Sodium Chloride (Normal Saline) 1,000 mls @ 100 mls/hr IV ASDIRECTED [facility] Stop: 07/31/17 06:44 Last Admin: 07/30/17 01:58 Dose: 100 mls/hr Influenza Virus Vaccine (Pharmacy To Dose - Influenza Vaccine) 1 each IM ONETIME ONE Stop: 07/30/17 05:26 Influenza Virus Vaccine (Flulaval Quad [id number]) 60 mcg IM .ONCE ONE Stop: 07/30/17 10:01 Iopamidol (Isovue-300 (61%)) 150 ml IVPUSH ONETIME ONE Stop: 07/29/17 17:39 Last Admin: 07/29/17 18:04 Dose: 125 ml Magnesium Oxide (Magnesium Oxide) 400 mg PO ONETIME ONE Stop: 07/30/17 09:01 Last Admin: 07/30/17 09:24 Dose: 400 mg Ondansetron HCl (Zofran) 4 mg IVPUSH ONETIME ONE Stop: 07/29/17 16:09 Last Admin: 07/29/17 16:40 Dose: 4 mg Potassium Chloride (Klor-Con M20) 40 meq PO Q4H [facility] Stop: 07/30/17 13:01 Last Admin: 07/30/17 12:33 Dose: 40 meq - Exam General: Alert, Oriented, Cooperative, No Acute Distress HEENT: Pupils Equal, Pupils Reactive, EOMI, Mucous Membr. Moist/[place], Other ( Anicteric Sclerae) Neck: Supple, Trachea Midline, No JVD, No Thyromegaly Lungs: Clear to Auscultation, Normal Respiratory Effort Cardiovascular: Regular Rate, Regular Rhythm GI/Abdominal Exam: Normal Bowel Sounds, Soft, No Organomegaly, No Distention, No Abnormal Bruit, Tender (mild tenderness on right lower quadrant), Other. No : Distended, Guarding, Rigid, Rebound (Male) Exam: Deferred Back Exam: Normal Inspection, Decreased Range of Motion Extremities: Normal Inspection, Normal Range of Motion, Non-Tender, No Pedal Edema, Normal Capillary Refill Peripheral Pulses: 2+: Dorsalis Pedis (L), Dorsalis Pedis (R) Skin: Warm, Dry, Intact Neurological: No New Focal Deficit Psy/Mental Status: Alert, Normal Affect, Normal Mood - Problem List Review Problem List Initiated/Reviewed/Updated: Yes - My Orders Last 24 Hours: My Active Orders 07/30/17 08:57 oxyCODONE 10 mg PO Q6H PRN 07/30/17 08:58 HYDROmorphone [Dilaudid] 1 mg IVPUSH Q4H PRN 07/30/17 10:44 Hypromellose [Isopto Tears 0.5% Ophth Soln] 0 ml EYEBOTH Q1H PRN 07/30/17 15:00 Dextrose 5%-0.9% NaCl [Dextrose 5%-Normal Saline] 1,000 ml IV ASDIRECTED 07/30/17 Dinner NPO [Nothing Per Oral Diet] [DIET] - Plan Plan:: I/P: Acute: Diverticulitis, Improved -Hx/o diverticulits x2 in past - last hospitalized here in December 2014 -CRP trending--> concerns for inflammatory disease -Abdominal pain that started around 1 AM - LLQ>RLQ>upper quadrants -Remains afebrile w/i mild leukocytosis -CT suggests diverticulitis near junction of rectum and sigmoid colon, no abscess -WBC 13.42--> 13.12-->8.44, CRP 8.8--> 16.5--> 17.3 -Reported colonoscopy 3 years ago -Continue daily IV Levaquin 500 mg/Flagyl 500 mg IV Q6H and Probiotic -Res-start clear liquid and advance as tolerated -Start steroid for anti-inflammatory agent, first dose now -Continue to ambulate as tolerated -D/c IV fluids once he is tolerating diet -Continue Pain medications and Antiemetics Dry and Itchy Eyes - No hx/o Sjogren Syndrome or Kerato-conjuctivitis - No erythema or edema - Unfortunately we do not carry his eye drops in our formulary - Informed patient he may bring in his home product for use Chronic: Obesity - BMI 33.4 Hx/o PE Plan: He remains clinically stable Continue current treatment Routine AM Labs Encourage to Ambulate as tolerated Other orders as indicated above DVT/PE prophylaxis: Lovenox CM for discharge planning Code status: full code; PCP: Dr. Kerns at [facility] here in [place] Possible d/c in Am if able to tolerated solid food
[2017-07-31] MEDS: Dextrose 5%-0.9% NaCl 1,000 ML IV SCH ×3 (00:14→17:09)
[2017-07-31] MEDS: metroNIDAZOLE/Normal Saline 500 MG in Premix Bag 1 BAG IV SCH ×4 (00:15→17:09)
[2017-07-31] MEDS: Hypromellose 0.5% Ophth Soln 15 ML Bottle EYEBOTH PRN ×4 (00:22→20:53)
[2017-07-31] MEDS: Famotidine 20 MG Tab PO SCH ×2 (08:02→20:51)
[2017-07-31] MEDS: Enoxaparin 40 MG/0.4 ML Syringe SUBCUT SCH (08:02)
[2017-07-31] MEDS: Saccharomyces Boulardii (Probiotic) 250 MG Cap PO SCH ×2 (08:02→20:52)
[2017-07-31] MEDS: Aspirin 81 MG Tab.EC PO SCH (08:02)
[2017-07-31] MEDS: oxyCODONE 5 MG Tab PO PRN ×2 (08:05→15:19)
[2017-07-31] MEDS: Mesalamine 800 MG Tab.CR PO SCH ×3 (11:06→20:51)
[2017-07-31] MEDS ORDERED: methylPREDNISolone Sodium Succinate 125 MG/2 ML SDV IVPUSH ONE (13:19)
[2017-07-31] MEDS: Levofloxacin/Dextrose 5%-Water 500 MG in Premix Bag 1 BAG IV SCH (15:21)
[2017-07-31] MEDS: Temazepam 15 MG Cap PO PRN (20:52)
[2017-07-31] MEDS: HYDROmorphone 1 MG/ML Syringe IVPUSH PRN (20:52)
[2017-08-01] MEDS: metroNIDAZOLE/Normal Saline 500 MG in Premix Bag 1 BAG IV SCH ×3 (01:19→12:03)
[2017-08-01] MEDS: Dextrose 5%-0.9% NaCl 1,000 ML IV SCH (01:19)
[2017-08-01] MEDS ORDERED: predniSONE 20 MG Tab PO SCH (07:00)
[2017-08-01] MEDS: Enoxaparin 40 MG/0.4 ML Syringe SUBCUT SCH (08:05)
[2017-08-01] MEDS: Mesalamine 800 MG Tab.CR PO SCH (08:05)
[2017-08-01] MEDS: Saccharomyces Boulardii (Probiotic) 250 MG Cap PO SCH (08:05)
[2017-08-01] MEDS: Aspirin 81 MG Tab.EC PO SCH (08:06)
[2017-08-01] MEDS: Famotidine 20 MG Tab PO SCH (08:06)
[2017-08-01 08:20] VITALS: BP 133/90
--- NOTE | 2017-08-01 08:31 | PCM.DCSUM1 ---
Discharge Summary - Hospital Course Free Text/Narrative:: Seferino López is a 62 yo male who presented to our ED today (07/29/17) with abdominal pain. He reports the pain began around 1 AM this morning. Pain is primarily located in the lower abdomen but it is entire abdomen does hurt occasionally. He has a decreased appetite but no fever, nausea, vomiting. He did have some looser stools this morning and there is no blood in his stool. He has had diverticulitis twice in the past, with his last hospitalization being here in December 2014. At that time it was a questionable perforation on CT scan. Reports he did have colonoscopy about 3 years ago. Reports he was ill during the beginning of June with influenza and the symptoms have resolved since then. In the ED temperature was 37.6 Celsius. Pulse 80. Respirations 20. Blood pressure 142/83. Pulse ox 97%. Labs are obtained: The VAC is elevated at 13.42. Hemoglobin and crit 14.3. Hematocrit good at 42.4. He is normocytic. Pulses were good at 260,000. Neutrophils were elevated at 81%. There is no bandemia. Sodium is 139. Potassium 3.9. Chloride 105. Carbon dioxide 24. Anion gap 13.9. BUN is 12. Creatinine 1.1. EGFR greater than 60. Glucose is 101. Calcium 8.9. Total bilirubin 0.7. Liver enzymes AST is 12, ALT 35, alkaline phosphatase 39. CRP is elevated at 8.8. Total protein 7.0. Albumin 3.8. Lipase 126. UA is negative. IV was established normal saline. 500 mg metronidazole and 750 mg Levaquin IV given. Zofran IVP is given for nausea and Dilaudid was given multiple times for pain. CT of the abdomen and pelvis is obtained and interpreted as "1. Findings panel with diverticulitis in the junction of sigmoid and rectum. No abscess is seen at this time. 2. Other incidental findings." He does have a history of impaired vision, prior PE, diverticulosis, and obesity. He is a former smoker. He does have a history of heavy EtOH use. He subsequently admitted to the medical floor. He is a full code. His PCP is Dr. Kerns at [facility] in [place]. - Discharge Data Discharge Date: 08/01/17 (admit date 07/29/17) Discharge Disposition: Home, Self-Care 01 Condition: Good - Patient Summary/Data Operative Procedure(s) Performed: None Complications: None Consults: Consultations 07/29/17 20:45 Consult to Case Management [CONS] Routine PT Evaluation and Treatment [CONS] Routine Labs Pending at D/C: None Recommended Follow-up Testing/Procedures: Patient DC instructions: [place] diet for the next 5-7 days, slowly advancing as tolerated. Avoid alcohol Push fluids Follow up with PCP, Dr. Kerns within 7 days of discharge Planned Operative Procedure(s) after DC: None Hospital Course: I/P: Acute: Diverticulitis, Improved -Hx/o diverticulits x2 in past - last hospitalized here in December 2014 - Abdominal pain that started around 1 AM on day of admission - LLQ>RLQ>upper quadrants -CT suggests diverticulitis near junction of rectum and sigmoid colon, no abscess -WBC 13.42--> 13.12-->8.44, CRP 8.8--> 16.5--> 17.3-->9.0 -Reported colonoscopy 3 years ago -Continue daily IV Levaquin 500 mg/Flagyl 500 mg IV Q6H and Probiotic-- Will DC on PO levaquin/Flagyl x 7 days, probiotic. -Res-start clear liquid and advance as tolerated --- tolerating soft/regular diet without increased pain or nausea. -Start steroid for anti-inflammatory agent- DC PO prednisone (on for 2 days only, no need for rx as outpatient) -Continue to ambulate as tolerated -- making 10 laps at a time- doing well -D/c IV fluids once he is tolerating diet --DC'd -Continue Pain medications and Antiemetics -- minimal requirements, none on dc other than OTC. Dry and Itchy Eyes - No hx/o Sjogren Syndrome or Kerato-conjuctivitis - No erythema or edema - Unfortunately we do not carry his eye drops in our formulary - Informed patient he may bring in his home product for use Chronic: Obesity - BMI 33.4 Hx/o PE- DVT prophylax with Lovenox Remote hx of smoking- quit in 2014. Plan: He remains clinically stable Continue current treatment Routine AM Labs Encourage to Ambulate as tolerated Other orders as indicated above DVT/PE prophylaxis: Lovenox CM for discharge planning---tolerating food, ambulating-- will be dc'd home today. Code status: full code; PCP: Dr. Kerns at [facility] here in [place] - Patient Instructions Diet: Drink 8-10+ Glasses/Day, No Alcoholic Beverages, GI Soft/Low Residue/Low Fiber Activity: As Tolerated, No Lifting Over 20 Pounds (No lifting, pushing, pulling , carrying >20lbs for one week, then slowly advance weight restrictions as tolerated) Driving: Do Not Drive (if taking narcotic pain medications) Showering/Bathing: May Shower Notify Provider of: Fever, Increased Pain, Nausea and/or Vomiting - Discharge Plan Prescriptions/Med Rec: Bifidobacter. Bifidum/B.Longum [Florajen Bifidoblend] 460 mg PO DAILY #30 capsule Levofloxacin [Levaquin] 500 mg PO DAILY #7 tab metroNIDAZOLE [Flagyl] 500 mg PO TID #21 tab Home Medications: Home Meds Multivitamin [Daily Multiple Vitamin] 1 tab PO DAILY 10/03/14 [History] Aspirin [Halfprin] 81 mg PO DAILY 01/22/15 [History] Psyllium with Sucrose [Metamucil] 1 packet PO DAILY 03/04/16 [History] Bifidobacter. Bifidum/B.Longum [Florajen Bifidoblend] 460 mg PO DAILY #30 capsule 08/01/17 [Rx] Levofloxacin [Levaquin] 500 mg PO DAILY #7 tab 08/01/17 [Rx] metroNIDAZOLE [Flagyl] 500 mg PO TID #21 tab 08/01/17 [Rx] Patient Handouts: Diverticulitis, Low-Fiber Diet Forms: ED Department Discharge Referrals: Gustavo Kerns MD [Primary Care Provider] - - Discharge Summary/Plan Comment DC Time >30 min.: Yes (40) - General Info Date of Service: 08/01/17 Admission Dx/Problem (Free Text: Admission Diagnosis/Problem Admission Diagnosis/Problem Diverticulitis Patient doing well. Pain minimal to none. Up ambulatory about the unit this morning. tolerating food without n/v. Having BM's, no diarrhea. Plans for DC home later this afternoon. Functional Status: Reports: Pain Controlled, Tolerating Diet, Ambulating, Urinating. Denies: New Symptoms - Review of Systems General: Reports: No Symptoms HEENT: Reports: No Symptoms Pulmonary: Reports: No Symptoms Cardiovascular: Reports: No Symptoms Gastrointestinal: Reports: Abdominal Pain (minimal ). Denies: Diarrhea, Hematochezia, Melena, Nausea, Vomiting Musculoskeletal: Reports: No Symptoms Neurological: Reports: No Symptoms - Patient Data Vitals - Most Recent: Last Vital Signs Temp 97.9 F 08/01/17 07:51 Pulse 58 L 08/01/17 07:51 Resp 18 08/01/17 07:51 BP 133/90 08/01/17 07:51 Pulse Ox 95 08/01/17 07:51 Weight - Most Recent: 252 lb 11.2 oz I&O - Last 24 hours: Intake & Output 07/31/17 08/01/17 08/01/17 22:59 06:59 14:59 Intake Total 2400 2700 Output Total 1950 1700 Balance 450 1000 Lab Results - Last 24 hrs: Laboratory Results - last 24 hr 08/01/17 08/01/17 Range/Units 05:58 05:58 WBC 9.42 H (4.23-9.07) K/mm3 RBC 4.40 L (4.63-6.08) M/mm3 Hgb 12.7 L (13.7-17.5) gm/L Hct 38.4 L (40.1-51.0) % MCV 87.3 (79.0-92.2) fl MCH 28.9 (25.7-32.2) pg MCHC 33.1 (32.2-35.5) g/dl RDW Std Deviation 41.7 (35.1-43.9) fL Plt Count 263 (163-337) K/mm3 MPV 9.6 (9.4-12.3) fl Neut % (Auto) 84.8 H (34.0-67.9) % Lymph % (Auto) 10.7 L (21.8-53.1) % [place] % (Auto) 4.2 L (5.3-12.2) % Eos % (Auto) 0 L (0.8-7.0) Baso % (Auto) 0.1 (0.1-1.2) % Neut # (Auto) 7.98 H (1.78-5.38) K/mm3 Lymph # (Auto) 1.01 L (1.32-3.57) K/mm3 [place] # (Auto) 0.40 (0.30-0.82) K/mm3 Eos # (Auto) 0.00 L (0.04-0.54) K/mm3 Baso # (Auto) 0.01 (0.01-0.08) K/mm3 Sodium 142 (136-145) mEq/L Potassium 3.9 (3.5-5.1) mEq/L Chloride 109 H (98-107) mEq/L Carbon Dioxide 25 (21-32) mEq/L Anion Gap 11.9 (5-15) BUN 10 (7-18) mg/dL Creatinine 0.9 (0.7-1.3) mg/dL Est Cr Clr Drug Dosing 92.96 mL/min Estimated GFR (MDRD) > 60 (>60) mL/min BUN/Creatinine Ratio 11.1 L (14-18) Glucose 159 H (74-106) mg/dL Calcium 8.7 (8.5-10.1) mg/dL Magnesium 2.2 (1.8-2.4) mg/dl C-Reactive Protein 9.0 H* (<1.0) mg/dL Med Orders - Current: Current Medications Acetaminophen (Tylenol) 650 mg PO Q4H PRN PRN Reason: Pain (Mild 1-3)/fever Artificial Tears (Isopto Tears 0.5% Ophth Soln) 0 ml EYEBOTH Q1H PRN PRN Reason: Dry Eyes Last Admin: 07/31/17 20:53 Dose: 1 drop Aspirin (Halfprin) 81 mg PO DAILY [facility] Last Admin: 08/01/17 08:06 Dose: 81 mg Enoxaparin Sodium (Lovenox) 40 mg SUBCUT DAILY [facility] Last Admin: 08/01/17 08:05 Dose: 40 mg Famotidine (Pepcid) 20 mg PO BID [facility] Last Admin: 08/01/17 08:06 Dose: 20 mg Hydromorphone HCl (Dilaudid) 1 mg IVPUSH Q4H PRN PRN Reason: Pain (severe 7-10) Last Admin: 07/31/17 20:52 Dose: 1 mg Levofloxacin/Dextrose 500 mg/ (Premix) 100 mls @ 100 mls/hr IV Q24H [facility] Last Admin: 07/31/17 15:21 Dose: 100 mls/hr Metronidazole 500 mg/ Premix 100 mls @ 100 mls/hr IV Q6HR [facility] Last Admin: 08/01/17 06:03 Dose: 100 mls/hr Dextrose/Sodium Chloride (Dextrose 5%-Normal Saline) 1,000 mls @ 125 mls/hr IV ASDIRECTED [facility] Last Admin: 08/01/17 01:19 Dose: 125 mls/hr Magnesium Sulfate (Pharmacy To Dose - Magnesium Replacement) 1 dose .XX ASDIRECTED [facility] Mesalamine (Asacol Hd) 800 mg PO TID [facility] Last Admin: 08/01/17 08:05 Dose: 800 mg Ondansetron HCl (Zofran Odt) 4 mg PO Q6H PRN PRN Reason: nausea, able to take PO Ondansetron HCl (Zofran) 4 mg IV Q6H PRN PRN Reason: Nausea/Vomiting Last Admin: 07/30/17 13:15 Dose: 4 mg Oxycodone HCl (Oxycodone) 10 mg PO Q6H PRN PRN Reason: Pain Last Admin: 07/31/17 15:19 Dose: 10 mg Potassium Chloride (Pharmacy To Dose - Potassium Replacement) 1 dose .XX ASDIRECTED [facility] Prednisone (Prednisone) 40 mg PO WITHBREAKFAST [facility] Last Admin: 08/01/17 06:03 Dose: 40 mg Saccharomyces Boulardii (Florastor) 250 mg PO BID [facility] Last Admin: 08/01/17 08:05 Dose: 250 mg Sodium Chloride (Saline Flush) 10 ml FLUSH ASDIRECTED PRN PRN Reason: Keep Vein Open Last Admin: 07/29/17 16:42 Dose: 10 ml Sodium Chloride (Saline Flush) 10 ml FLUSH ONETIME PRN PRN Reason: IV FLUSH Last Admin: 07/29/17 18:05 Dose: 10 ml Temazepam (Restoril) 15 mg PO BEDTIME PRN PRN Reason: Sleep Last Admin: 07/31/17 20:52 Dose: 15 mg Discontinued Medications Hydrocodone Bitart/Acetaminophen ([place] 325-5 Mg) 1 tab PO Q4H PRN PRN Reason: Pain (moderate 4-6) Last Admin: 07/30/17 05:33 Dose: 1 tab Diatrizoate Meglum/Diatrizoate Sod (Gastrografin 37%) 120 ml PO ONETIME ONE Stop: 02/02/18 17:39 Last Admin: 07/29/17 18:04 Dose: 90 ml Hydromorphone HCl (Dilaudid) 1 mg IVPUSH ONETIME ONE Stop: 07/29/17 16:09 Last Admin: 07/29/17 16:41 Dose: 1 mg Hydromorphone HCl (Dilaudid) 1 mg IVPUSH ONETIME ONE Stop: 07/29/17 17:40 Last Admin: 07/29/17 17:50 Dose: 1 mg Hydromorphone HCl (Dilaudid) 1 mg IVPUSH ONETIME ONE Stop: 07/29/17 19:42 Last Admin: 07/29/17 19:48 Dose: 1 mg Hydromorphone HCl (Dilaudid) 0.5 mg IVPUSH Q2H PRN PRN Reason: Pain (severe 7-10) Last Admin: 07/30/17 05:34 Dose: 0.5 mg Sodium Chloride (Normal Saline) 1,000 mls @ 125 mls/hr IV ASDIRECTED [facility] Last Admin: 07/29/17 16:42 Dose: 125 mls/hr Metronidazole 500 mg/ Premix 100 mls @ 100 mls/hr IV ONETIME ONE Stop: 07/29/17 20:32 Last Admin: 07/29/17 19:38 Dose: 100 mls/hr Levofloxacin/Dextrose 750 mg/ (Premix) 150 mls @ 100 mls/hr IV ONETIME ONE Stop: 07/29/17 21:10 Last Admin: 07/29/17 21:26 Dose: 100 mls/hr Sodium Chloride (Normal Saline) 1,000 mls @ 100 mls/hr IV ASDIRECTED [facility] Stop: 07/31/17 06:44 Last Admin: 07/30/17 01:58 Dose: 100 mls/hr Influenza Virus Vaccine (Pharmacy To Dose - Influenza Vaccine) 1 each IM ONETIME ONE Stop: 07/30/17 05:26 Influenza Virus Vaccine (Flulaval Quad [id number]) 60 mcg IM .ONCE ONE Stop: 07/30/17 10:01 Iopamidol (Isovue-300 (61%)) 150 ml IVPUSH ONETIME ONE Stop: 07/29/17 17:39 Last Admin: 07/29/17 18:04 Dose: 125 ml Magnesium Oxide (Magnesium Oxide) 400 mg PO ONETIME ONE Stop: 07/30/17 09:01 Last Admin: 07/30/17 09:24 Dose: 400 mg Methylprednisolone Sodium Succinate (Solu-Medrol) 125 mg IVPUSH ONETIME ONE Stop: 07/31/17 13:20 Last Admin: 07/31/17 13:45 Dose: 125 mg Ondansetron HCl (Zofran) 4 mg IVPUSH ONETIME ONE Stop: 07/29/17 16:09 Last Admin: 07/29/17 16:40 Dose: 4 mg Potassium Chloride (Klor-Con M20) 40 meq PO Q4H JONNY Stop: 07/30/17 13:01 Last Admin: 07/30/17 12:33 Dose: 40 meq - Exam Quality Assessment: Reports: DVT Prophylaxis General: Reports: Alert, Oriented, Cooperative, No Acute Distress HEENT: Reports: Pupils Equal, EOMI, Mucous Membr. Moist/[place] Neck: Reports: Supple Lungs: Reports: Clear to Auscultation, Normal Respiratory Effort Cardiovascular: Reports: Regular Rate, Regular Rhythm GI/Abdominal Exam: Normal Bowel Sounds, Soft, Non-Tender, No Organomegaly (Male) Exam: Deferred Rectal (Males) Exam: Deferred Extremities: No Pedal Edema, Normal Capillary Refill Neurological: Reports: No New Focal Deficit Psy/Mental Status: Reports: Alert, Normal Affect, Normal Mood *Q Meaningful Use (DIS) - VTE *Q VTE Criteria *Q: - Stroke *Q Stroke Criteria *Q: - AMI *Q AMI Criteria *Q:
[2017-08-01] MEDS ORDERED: metroNIDAZOLE 500 MG Tab PO ONE (13:00)
== END 2017-08-01 14:00 | disposition home or self-care (01) | DRG 392 ==
LOC: JD.ED 15:36 → JD.MS 20:01 → EEVIPCON 20:01 → JD.MS 20:14
PROVIDERS: ADMIT Internal Medicine; ATTEND Internal Medicine
PROC: 3E0234Z Introduction of Serum, Toxoid and Vaccine into Muscle, Percutaneous Approach (ICD-10-PCS; principal; 2017-08-01)
DX: K57.92 Diverticulitis of intestine, part unspecified, without perforation or abscess without bleeding (principal); H54.7 Unspecified visual loss; E66.9 Obesity, unspecified; Z86.711 Personal history of pulmonary embolism; Z79.82 Long term (current) use of aspirin; Z79.899 Other long term (current) drug therapy; Z87.891 Personal history of nicotine dependence; Z68.33 Body mass index [BMI] 33.0-33.9, adult; Z23 Encounter for immunization; H57.8 Other specified disorders of eye and adnexa
CPT/HCPCS: 36415; 74177; 74177-26; 80048; 80053; 81001; 83690; 83735; 85025; 86140; 90686; 96361; 96365; 96375; 96376; 97161-GP; 99285-25; A9270-GY; G0008; J1170; J1650; J1956; J2405; J2930; J7040; J7042; J7050; Q9963; Q9967

== ENCOUNTER 2021-06-02 16:00 | Emergency (ER) | payer OTHER ==
[2021-06-02] MEDS ORDERED: Sodium Chloride 0.9% 1,000 ML IV SCH (16:30)
[2021-06-02] MEDS ORDERED: Diltiazem 50 MG/10 ML SDV IVPUSH ONE ×2 (16:44→17:55)
[2021-06-02] MEDS ORDERED: Diltiazem 100 MG in Sodium Chloride 0.9% 100 ML IV SCH (16:45)
[2021-06-02] MEDS ORDERED: Apixaban 5 MG Tab PO ONE (16:46)
--- NOTE | 2021-06-02 16:48 | EDM.PDOC ---
ED HPI GENERAL MEDICAL PROBLEM - General Chief Complaint: Cardiovascular Problem Stated Complaint: SOB/SENT BY [facility] Time Seen by Provider: 06/02/21 16:31 Source of Information: Reports: Patient History Limitations: Reports: No Limitations - History of Present Illness INITIAL COMMENTS - FREE TEXT/NARRATIVE: 66-year-old male presents to the ED at the request of his primary care physician from the clinic where he was just seen. Patient is appreciated is not felt well for about a week after he received his booster Covid vaccination on May 05. He is aware that his heart has been beating fast and irregular in his chest but only became symptomatic with shortness of breath over the last few days. He has developed some degree of orthopnea and has had to lift his head of his bed up which does it automatically the last 3 or 4 nights. He admits to feeling short of breath on exertion compared to his norm. Of note he is otherwise in good health and does not take any medications. This morning he tried to shovel a bit of snow from the driveway became increasingly dyspneic which precipitated his visit to his physician. Dr. Fairbanks identified the patient to be in a narrow complex tachycardia which proved to be atrial fibrillation. Patient is tolerating the rapid rate of 150 to 220 bpm very well. He denies feeling lightheaded dizzy or weak in the extremities only mildly dyspneic and occasional tightness in his anterior chest Onset: Unknown/Unsure (He believes his heart is been beating irregularly and fast in his chest for the last 3 weeks. He has a blood pressure cuff at home that actually tells him that his heart rate has been going faster than normal. He has never had any problems with an arrhythmia in the past) Onset Date: 05/12/21 Duration: Week(s): (Or thereabouts), Waxing/Waning Location: Reports: Other (Shortness of breath no significant chest pain dizziness or weakness in his lower extremities) Quality: Reports: Other (Mild dyspnea worse the last 3 days) Severity: Mild Improves with: Reports: Rest Worsens with: Reports: Movement (Worsens with exertion such as trying to shovel snow this morning) Context: Denies: Activity, Exercise, Lifting, Sick Contact, Trauma, Other Associated Symptoms: Reports: Cough, Malaise, Shortness of Breath. Denies: No Other Symptoms, Confusion, Chest Pain (Very rare nonproductive cough), cough w sputum, Diaphoresis, Fever/Chills, Headaches, Loss of Appetite, Nausea/Vomiting, Rash, Seizure (Perhaps a little more tired than normal), Syncope, Weakness, Other Treatments [employer]: Reports: Other (see below) (He takes no medications) - Related Data Allergies Allergy/AdvReac Type Severity Reaction Status Date / Time No Known Allergies Allergy Verified 06/02/21 16:19 Home Meds: Home Meds Multivitamin [Daily Multiple Vitamin] 1 tab PO DAILY 10/03/14 [History] Aspirin [Halfprin] 81 mg PO DAILY 01/22/15 [History] Psyllium with Sucrose [Metamucil] 1 packet PO DAILY 03/04/16 [History] Bifidobacter. Bifidum/B.Longum [Florajen Bifidoblend] 460 mg PO DAILY #30 capsule 08/01/17 [Rx] Prednisone [IJD: Prednisone] 10 mg PO ASDIRECTED #30 tab 08/01/17 [Rx] levoFLOXacin [Levaquin] 500 mg PO DAILY #7 tab 08/01/17 [Rx] metroNIDAZOLE [Flagyl] 500 mg PO TID #21 tab 08/01/17 [Rx] Diltiazem [Cardizem CD] 120 mg PO DAILY #14 cap.er 06/02/21 [Rx] Past Medical History HEENT History: Reports: Impaired Vision Other HEENT History: wears glasses Respiratory History: Reports: PE Gastrointestinal History: Reports: Diverticulosis Other Gastrointestinal History: Diverticulosis Musculoskeletal History: Reports: Other (See Below) Other Musculoskeletal History: broken back Endocrine/Metabolic History: Reports: Obesity/BMI 30+ - Past Surgical History Other HEENT Surgeries/Procedures: Pt wears glasses Musculoskeletal Surgical History: Reports: Knee Replacement Other Musculoskeletal Surgeries/Procedures:: Neck surgery, wrist surgery Social & Family History - Family History Family Medical History: No Pertinent Family History - Tobacco Use Tobacco Use Status *Q: Never Tobacco User - Caffeine Use Caffeine Use: Reports: Coffee Other Caffeine Use: 1 1/2 cups on the morning and sometimes one cup in the afternoon. Caffeine Use Comment: 2 cups in AM - Recreational Drug Use Recreational Drug Use: No - Living Situation & Occupation Living situation: Reports: with Significant Other Occupation: Employed ED ROS GENERAL - Review of Systems Review Of Systems: See Below Constitutional: Reports: Malaise, Fatigue. Denies: Fever, Chills, Night Sweats, Diaphoresis HEENT: Reports: Glasses Respiratory: Reports: Shortness of Breath, Cough, Other (Some orthopnea the last few nights). Denies: Wheezing (Only for reading at times), Pleuritic Chest Pain, Sputum (Very rare nonproductive cough), Hemoptysis Cardiovascular: Reports: Dyspnea on Exertion (Last few days), Orthopnea. Denies: Blood Pressure Problem, Claudication Endocrine: Reports: Fatigue GI/Abdominal: Reports: No Symptoms : Reports: No Symptoms Musculoskeletal: Reports: No Symptoms Skin: Reports: No Symptoms Neurological: Reports: No Symptoms Psychiatric: Reports: No Symptoms Hematologic/Lymphatic: Reports: No Symptoms Immunologic: Reports: No Symptoms ED EXAM, GENERAL - Physical Exam Exam: See Below Exam Limited By: No Limitations General Appearance: Alert, WD/WN, No Apparent Distress, Other (Temperature is 36.1 degrees. Heart rate was 1 50-220 beats per on ECG. Respiratory was 20. Blood pressure was 148/78 initially.) Eye Exam: Bilateral Eye: Normal Inspection (No blepharal pallor or scleral icterus), PERRL Throat/Mouth: Normal Inspection, Normal Lips, Normal Teeth, Normal Voice Head: Atraumatic, Normocephalic Neck: Normal Inspection, Supple, Non-Tender, Full Range of Motion. No: Carotid Bruit, Lymphadenopathy (L), Lymphadenopathy (R) Respiratory/Chest: No Respiratory Distress, Lungs Clear, Normal Breath Sounds, No Accessory Muscle Use, Chest Non-Tender Cardiovascular: Normal Peripheral Pulses, No Edema, No Gallop, No JVD (No JVD visible but he has a thick bull neck), No Murmur, No Rub, Tachycardia (Irregular irregular narrow complex tachycardia the monitor combined with atrial fibrillation) Peripheral Pulses: 2+: Carotid (L), Carotid (R), Posterior Tibial (L), Posterior Tibial (R), Dorsalis Pedis (L), Dorsalis Pedis (R) GI/Abdominal: Normal Bowel Sounds, Soft, Non-Tender, No Organomegaly, No Abnormal Bruit, Other (No surgical scars) (Male) Exam: No Hernia Back Exam: Normal Inspection, Full Range of Motion. No: CVA Tenderness (L), CVA Tenderness (R) Extremities: Normal Inspection, Normal Range of Motion, Non-Tender, No Pedal Edema Neurological: Alert, Oriented, CN II-XII Intact, Normal Cognition, Normal Gait Psychiatric: Normal Affect, Normal Mood Skin Exam: Warm, Dry, Intact, Normal Color, No Rash #1 Interpretation EKG Date: 06/02/21 Time: 16:17 Rhythm: A-Fib (With rate of 1 40-220 beats a minute) Rate (Beats/Min): 168 [place]: Normal P-Wave: Absent QRS: Other (Early R wave transition V3 and V4 suggestive of septal hypertrophy) ST-T: Depressed (Mild ST segment depression V2 to V6 and aVL likely due to rate. Patient has no chest pain) QT: Prolonged (Minimally prolonged) EKG Interpretation Comments: Abnormal ECG #2 Interpretation EKG Date: 06/02/21 Time: 20:00 Rhythm: NSR Rate (Beats/Min): 86 [place]: Normal P-Wave: Enlarged (Consider left atrial hypertrophy) QRS: Other (Early R wave transition consider septal hypertrophy pattern) ST-T: Other (T wave flattening aVL nonspecific finding) QT: Normal EKG Interpretation Comments: Borderline ECG Course - Vital Signs Last Recorded V/S: Last Vital Signs Temp 36.1 C 06/02/21 16:13 Pulse 87 06/02/21 20:56 Resp 16 06/02/21 17:30 BP 132/78 06/02/21 20:56 Pulse Ox 97 06/02/21 17:30 - Orders/Labs/Meds Orders: Active Orders 24 hr Category Date Time Status Diltiazem [Cardizem] 100 mg Med 06/02/21 16:45 Active Sodium Chloride 0.9% [Normal Saline AdvBag] 100 ml IV TITRATE Sodium Chloride 0.9% [Normal Saline] 1,000 ml Med 06/02/21 16:30 Active IV ASDIRECTED EKG 12 Lead [EK] Stat Ther 06/02/21 19:52 Ordered Medication Orders Sodium Chloride (Normal Saline) 1,000 mls @ 75 mls/hr IV ASDIRECTED JONNY Last Admin: 06/02/21 16:59 Dose: 75 mls/hr Documented by: RICHARD Diltiazem HCl 100 mg/ Sodium (Chloride) 100 mls @ 10 mls/hr IV TITRATE JONNY; Protocol Last Titration: 06/02/21 19:00 Dose: 5 mg/hr, 5 mls/hr Documented by: Admin: 06/02/21 16:59 Dose: 10 mg/hr, 10 mls/hr Documented by: RICHARD Labs: Laboratory Tests 06/02/21 06/02/21 06/02/21 Range/Units 16:28 16:28 16:28 WBC 10.91 H (4.23-9.07) K/mm3 RBC 5.86 (4.63-6.08) M/mm3 Hgb 16.8 D (13.7-17.5) gm/dl Hct 50.6 (40.1-51.0) % MCV 86.3 (79.0-92.2) fl MCH 28.7 (25.7-32.2) pg MCHC 33.2 (32.2-35.5) g/dl RDW Std Deviation 47.0 H (35.1-43.9) fL Plt Count 223 (163-337) K/mm3 MPV 10.2 (9.4-12.3) fl Neut % (Auto) 62.4 (34.0-67.9) % Lymph % (Auto) 27.4 (21.8-53.1) % Rush % (Auto) 8.0 (5.3-12.2) % Eos % (Auto) 1.5 (0.8-7.0) Baso % (Auto) 0.4 (0.1-1.2) % Neut # (Auto) 6.82 H (1.78-5.38) K/mm3 Lymph # (Auto) 2.99 (1.32-3.57) K/mm3 Rush # (Auto) 0.87 H (0.30-0.82) K/mm3 Eos # (Auto) 0.16 (0.04-0.54) K/mm3 Baso # (Auto) 0.04 (0.01-0.08) K/mm3 PT 10.7 (9.7-12.0) SECONDS INR 0.96 APTT 27.3 (21.7-31.4) SECONDS Sodium 139 (136-145) mEq/L Potassium 5.6 H D (3.5-5.1) mEq/L Chloride 105 (98-107) mEq/L Carbon Dioxide 24 (21-32) mEq/L Anion Gap 15.6 H (5-15) BUN 25 H (7-18) mg/dL Creatinine 1.3 (0.7-1.3) mg/dL Est Cr Clr Drug Dosing 63.01 mL/min Estimated GFR (MDRD) 56 (>60) mL/min BUN/Creatinine Ratio 19.2 H (14-18) Glucose 101 H (70-99) mg/dL Calcium 9.3 (8.5-10.1) mg/dL Magnesium 1.9 (1.8-2.4) mg/dL Total Bilirubin 0.4 (0.2-1.0) mg/dL AST 39 H (15-37) U/L ALT 30 (16-63) U/L Alkaline Phosphatase 75 (46-116) U/L CK-MB (CK-2) 1.1 (0-3.6) ng/ml Troponin I < 0.017 (0.00-0.056) ng/mL C-Reactive Protein 1.4 H* (<1.0) mg/dL NT-Pro-B Natriuret Pep (0-125) pg/mL Total Protein 7.8 (6.4-8.2) g/dl Albumin 3.9 (3.4-5.0) g/dl Globulin 3.9 gm/dL Albumin/Globulin Ratio 1.0 (1-2) SARS-CoV-2 RNA (ENMANUEL) (NEGATIVE) 06/02/21 06/02/21 Range/Units 16:28 17:05 WBC (4.23-9.07) K/mm3 RBC (4.63-6.08) M/mm3 Hgb (13.7-17.5) gm/dl Hct (40.1-51.0) % MCV (79.0-92.2) fl MCH (25.7-32.2) pg MCHC (32.2-35.5) g/dl RDW Std Deviation (35.1-43.9) fL Plt Count (163-337) K/mm3 MPV (9.4-12.3) fl Neut % (Auto) (34.0-67.9) % Lymph % (Auto) (21.8-53.1) % Rush % (Auto) (5.3-12.2) % Eos % (Auto) (0.8-7.0) Baso % (Auto) (0.1-1.2) % Neut # (Auto) (1.78-5.38) K/mm3 Lymph # (Auto) (1.32-3.57) K/mm3 Rush # (Auto) (0.30-0.82) K/mm3 Eos # (Auto) (0.04-0.54) K/mm3 Baso # (Auto) (0.01-0.08) K/mm3 PT (9.7-12.0) SECONDS INR APTT (21.7-31.4) SECONDS Sodium (136-145) mEq/L Potassium (3.5-5.1) mEq/L Chloride (98-107) mEq/L Carbon Dioxide (21-32) mEq/L Anion Gap (5-15) BUN (7-18) mg/dL Creatinine (0.7-1.3) mg/dL Est Cr Clr Drug Dosing mL/min Estimated GFR (MDRD) (>60) mL/min BUN/Creatinine Ratio (14-18) Glucose (70-99) mg/dL Calcium (8.5-10.1) mg/dL Magnesium (1.8-2.4) mg/dL Total Bilirubin (0.2-1.0) mg/dL AST (15-37) U/L ALT (16-63) U/L Alkaline Phosphatase (46-116) U/L CK-MB (CK-2) (0-3.6) ng/ml Troponin I (0.00-0.056) ng/mL C-Reactive Protein (<1.0) mg/dL NT-Pro-B Natriuret Pep 1154 H (0-125) pg/mL Total Protein (6.4-8.2) g/dl Albumin (3.4-5.0) g/dl Globulin gm/dL Albumin/Globulin Ratio (1-2) SARS-CoV-2 RNA (ENMANUEL) Negative (NEGATIVE) Meds: Medications Generic Name Dose Route Start Last Admin Trade Name Freq PRN Reason Stop Dose Admin Sodium Chloride 1,000 mls @ 75 mls/hr 06/02/21 16:30 06/02/21 16:59 Normal Saline IV 75 mls/hr ASDIRECTED JONNY Administration Diltiazem HCl 100 mg/ Sodium 100 mls @ 10 mls/hr 06/02/21 16:45 06/02/21 19:00 Chloride IV 5 mg/hr TITRATE JONNY 5 mls/hr Titration Protocol 10 MG/HR Discontinued Medications Generic Name Dose Route Start Last Admin Trade Name Lisa PRN Reason Stop Dose Admin Apixaban 5 mg 06/02/21 16:46 06/02/21 16:59 Apixaban 5 Mg Tab PO 06/02/21 16:47 5 mg ONETIME ONE Administration Diltiazem HCl 10 mg 06/02/21 16:44 06/02/21 17:00 Diltiazem 50 Mg/10 Ml Sdv IVPUSH 06/02/21 16:45 10 mg ONETIME ONE Administration Diltiazem HCl 10 mg 06/02/21 17:55 06/02/21 18:46 Diltiazem 50 Mg/10 Ml Sdv IVPUSH 06/02/21 17:56 Not Given ONETIME ONE Diltiazem HCl 120 mg 06/02/21 20:14 06/02/21 20:56 Diltiazem 120 Mg Cap.Cd PO 06/02/21 20:15 120 mg ONETIME ONE Administration Furosemide 40 mg 06/02/21 18:28 06/02/21 19:05 Furosemide 40 Mg/4 Ml Vial IVPUSH 06/02/21 18:29 40 mg NOW ONE Administration Furosemide 40 mg 06/02/21 20:30 06/02/21 20:56 Furosemide 40 Mg Tab PO 06/02/21 20:31 40 mg ONETIME ONE Administration - Radiology Interpretation Free Text/Narrative:: 66-year-old male presents to the ED with rapid irregular heart rate appreciated by himself at home over the last several weeks. He had tried to shovel a bit of snow at home this morning and had to quit because he felt increased shortness of breath. He attended [facility] today to see his physician and was identified to have a rapid narrow complex tachycardia from 150 to 200 bpm. Patient is tolerating this extremely well. No significant lightheadedness or weakness in his legs. Just more short of breath even at rest. He is suffering a bit of orthopnea as he puts the habitus of his bed up usually during the night so that he can breathe better. He does not use CPAP or does not have obstructive sleep apnea. No past history of cardiac arrhythmias. Has apparently low cholesterol. He is currently on no medications. Patient had his Covid booster shot on May 05 and started to feel unwell about a week later and he blames the Covid shot as the cause of his current irregular heart problems. He is read about myocarditis. He has no chest pain however. - Re-Assessments/Exams Free Text/Narrative Re-Assessment/Exam: 06/02/21 17:30: Heart rate is down to the 100-110 range. BP 137/88. Sats are 97% on room air. 06/02/21 18:10: Heart rate is occasionally going up to as high as 140. Will repeat Cardizem 10 mg IV bolus. Chest x-ray done portably reveals normal cardiac silhouette. The superior mediastinum is slightly widened by soft tissue questionable retrocardiac goiter. Both pulmonary arteries are mildly prominent on x-ray with very slight vascular congestion. No pleural effusion. 06/02/21 18:28 Labs reveal a white count of 10.91 with the auto differential revealing 62% neutrophils. Hemoglobin is 16.8 with a hematocrit of 50.6 indicating some degree of hemoconcentration. Platelet count is 223,000. PT is 10.7 with an INR of 0.96. PTT is 27.3. Sodium is 139 potassium elevated at 5.6. Chloride 105 with a bicarb of 24. Anion gap is 15.6. BUN is 25 with a creatinine of 1.3 GFR is 56. BUN/creatinine ratio is elevated at 19.2. Glucose 101. Calcium 9.3. Magnesium 1.9. Bilirubin is 0.4 with an AST of 39 and an ALT of 30. Alkaline phosphatase is 75. CK-MB fraction is 1.1 troponin I is less than 0.017 C-reactive protein is 1.4. BNP is 1154. Total protein is 7.8 with an albumin fraction of 3.9 COVID-19 screen is negative. Patient will be given Lasix 40 mg IV which will improve his mildly elevated serum potassium level 06/02/21 18:32: I was watching the monitor and he did suddenly convert back to sinus rhythm in the 80s. Blood pressure is 120/83. Plan will be to wean him from his Cardizem drip from 10 mg/h down to 5 mg an hour at this time. After 15 minutes he will be off the Cardizem drip completely. I am going to place him on Cardizem 120 mg CD tablet daily for the next 2 weeks in effort to prevent recurrence of atrial fibrillation. I will have him follow-up with in clinic in a week's time to make sure he remains in sinus rhythm. If in 2 weeks he remains in sinus rhythm I suggest the Cardizem CD preparation be discontinued. In the interim he should have an echocardiogram. He will not be anticoagulated at this time. 06/02/21 20:14 patient has been weaned off his Cardizem infusion for 45 minutes and he remains in sinus rhythm at 86/min. BP is 128/87. O2 sats 98% room air. The plan will be to discharge him home on Cardizem CD 120 mg once daily for the next 2 weeks and if he remains in sinus rhythm after an echocardiogram is been completed he could have the medication discontinued. 06/02/21 20:20: Patient did well walking around the department x3 with no increase in heart rate and certainly no return to A. fib. He seemed to be a little bit unconvinced that he would not go immediately back into this irregular rhythm. He is still feeling a little of dyspnea on exertion and I will therefore give him another dose of Lasix 40 mg p.o. at time of discharge. He is to follow-up with Dr. Valery Tolentino in clinic in 7 to 10 days time. Departure - Departure Time of Disposition: 20:46 Disposition: Home, Self-Care 01 Reason for Transfer *Q: Other Condition: Good Clinical Impression: Atrial fibrillation with rapid ventricular response Prescriptions: Diltiazem [Cardizem CD] 120 mg PO DAILY #14 cap.er Instructions: Atrial Fibrillation, [id number] Referrals: Gustavo Kerns MD [Primary Care Provider] - Forms: ED Department Discharge Additional Instructions: Evaluation in the emergency room today in regards to rapid irregular heartbeat that is likely been present for the last 3 weeks. It was confirmed when you seen your personal care physician in clinic today. In the emergency room and ECG carried out your heart rate where is anywhere from 122 220 bpm with normal being 55 to 100 bpm. Lab test revealed that this had backed up some fluid in your lungs which we call mild congestive heart failure related to the rapid irregular heart rate. You were treated with Cardizem intravenous medication 10 mg bolus and then 10 mg/h and over an hour and a half you then converted to regular sinus rhythm in the 80s. He remained in this rhythm after being weaned off the Cardizem over the next hour. Over the last hour and a half you have not had any further irregular heartbeats and remained in sinus rhythm even on walking in the department. You were given a Cardizem CD 120 mg tablet at the time of discharge with Lasix 40 mg tablet by mouth to further help reduce shortness of breath due to fluid accumulation in your lungs over the last several weeks. As your heart place catch up this fluid will come out of your lungs over the next 24 hours with an improvement in your oxygenation and shortness of breath symptoms. You will need to fill a prescription for Cardizem CD 120 mg once daily tomorrow and take after supper for the next 14 days to ensure that you do not go back into atrial fibrillation in the near future. I would suggest giving Dr. Fairbanks a call tomorrow and speak with either himself or his nurse and arrange for an echocardiogram to be done as an outpatient. If the echocardiogram comes back normal and in 2 weeks you remain in regular rhythm the Cardizem could be discontinued. Otherwise please arrange a follow-up appoint with Dr. Valery Tolentino in 7 to 10 days time Sepsis Event Note (ED) - Evaluation Sepsis Screening Result: No Definite Risk - Focused Exam Vital Signs: Vital Signs Temp Pulse Pulse Resp BP BP Pulse Ox 06/02/21 20:56 87 132/78 06/02/21 17:30 106 H 16 131/91 H 97 06/02/21 16:13 36.1 C 150 H 20 99 - My Orders Last 24 Hours: My Active Orders 06/02/21 16:30 Sodium Chloride 0.9% [Normal Saline] 1,000 ml IV ASDIRECTED 06/02/21 16:45 Diltiazem [Cardizem] 100 mg Sodium Chloride 0.9% [Normal Saline AdvBag] 100 ml IV TITRATE 06/02/21 19:52 EKG 12 Lead [EK] Stat - Assessment/Plan Last 24 Hours: My Active Orders 06/02/21 16:30 Sodium Chloride 0.9% [Normal Saline] 1,000 ml IV ASDIRECTED 06/02/21 16:45 Diltiazem [Cardizem] 100 mg Sodium Chloride 0.9% [Normal Saline AdvBag] 100 ml IV TITRATE 06/02/21 19:52 EKG 12 Lead [EK] Stat
[2021-06-02] MEDS ORDERED: Furosemide 40 MG/4 ML VIAL IVPUSH ONE (18:28)
--- NOTE | 2021-06-02 19:10 | CR ---
Chest: Portable view of the chest was obtained. Comparison: Prior chest x-ray of 01/18/15. Heart size and mediastinum are normal. Minimal atelectasis is seen within the left lung base. Lungs otherwise are clear. Prior cervical spine surgery is noted with orthopedic hardware. Impression: 1. Slight atelectasis within the left lung base. Nothing acute is otherwise seen on portable chest x-ray. Diagnostic code #2
[2021-06-02] MEDS ORDERED: Diltiazem 120 MG Cap.CD PO ONE (20:14)
[2021-06-02] MEDS ORDERED: Furosemide 40 MG Tab PO ONE (20:30)
[2021-06-02 20:58] VITALS: BP 132/78; PULSE 87
== END 2021-06-02 21:03 | disposition home or self-care (01) ==
LOC: JD.ED 16:00 → JD.ICU 18:20 → UNDOADMIN 18:20 → JD.ED 21:03
DX: I48.91 Unspecified atrial fibrillation (principal); E66.9 Obesity, unspecified; Z79.899 Other long term (current) drug therapy; Z79.82 Long term (current) use of aspirin; Z86.711 Personal history of pulmonary embolism; Z20.822 Contact with and (suspected) exposure to COVID-19; Z68.35 Body mass index [BMI] 35.0-35.9, adult
CPT/HCPCS: 36415; 71045; 80053; 82553; 83735; 83880; 84484; 85025; 85610; 85730; 86140; 87635; 93005; 96365; 96366; 96375; 99285; A9270; J1940; J3490; J7030; U0002

== ENCOUNTER 2023-03-26 11:13 | Emergency (ER) | payer MEDICARE, BC ==
[2023-03-26] MEDS ORDERED: Sodium Chloride 0.9% 10 ML Syringe FLUSH PRN (11:29)
[2023-03-26] MEDS ORDERED: Diltiazem 25 MG/5 ML SDV IVPUSH ONE (11:30)
[2023-03-26] MEDS ORDERED: Sodium Chloride 0.9% 1,000 ML IV SCH (11:30)
[2023-03-26] MEDS ORDERED: Diltiazem 125 MG in Sodium Chloride 0.9% 100 ML IV SCH (11:30)
[2023-03-26 11:50] LABS: BASOPHILS ABSOLUTE AUTO 0.1 K/mm3 (0.0-0.2); BASOPHILS PERCENT AUTO 0.6 % (0.0-1.0); EOSINOPHILS ABSOLUTE AUTO 0.1 K/mm3 (0.0-0.4); EOSINOPHILS PERCENT AUTO 1.7 % (0.0-6.0); HEMOGLOBIN 16.4 gm/dl (14.0-18.0); IMMATURE GRAN ABSOLUTE AUTO 0.03 K/mm3 (0.00-0.05); IMMATURE GRAN PERCENT AUTO 0.4 % (0.0-0.4); LYMPHOCYTES ABSOLUTE AUTO 2.1 K/mm3 (1.0-4.8); LYMPHOCYTES PERCENT AUTO 24.8 % (24.0-44.0); MEAN CORPUSCULAR HEMOGLOBIN 29.9 pg (28.0-32.0); MEAN CORPUSCULAR HGB CONC 33.5 g/dl (32.0-36.0); MEAN CORPUSCULAR VOLUME 89.3 fl (83.0-99.0); MONOCYTES ABSOLUTE AUTO 0.6 K/mm3 (0.0-0.8); MONOCYTES PERCENT AUTO 7.1 % (0.0-8.0); NEUTROPHILS ABSOLUTE AUTO 5.5 K/mm3 (1.8-7.7); NEUTROPHILS PERCENT AUTO 65.4 % (41.0-71.0); PLATELET COUNT,PLT 226 K/mm3 (150-400); RED BLOOD CELL COUNT 5.49 M/mm3 (4.52-5.90); WHITE BLOOD CELL COUNT,WBC 8.35 K/mm3 (3.9-11.3)
[2023-03-26 12:24] LABS: A/G RATIO 1.2 (1-2); ALBUMIN 3.8 g/dl (3.4-5.0); BILIRUBIN TOTAL 0.7 mg/dL (0.2-1.0); BUN/CREATININE RATIO 13.3 (14-18); CALCIUM 9.8 mg/dL (8.5-10.1); CREATININE 1.2 mg/dL (0.7-1.3); EST CRCL DRUG DOSING (CG) 66.46 mL/min; PROTEIN TOTAL,TP 7.1 g/dl (6.4-8.2); TSH 2.641 uIU/mL (0.358-3.74)
[2023-03-26 15:36] VITALS: BP 154/94; PULSE 79
== END 2023-03-26 15:11 | disposition home or self-care (01) ==
LOC: JD.ED 11:13
DX: I48.91 Unspecified atrial fibrillation (principal); E66.9 Obesity, unspecified; Z87.891 Personal history of nicotine dependence; Z79.82 Long term (current) use of aspirin; Z79.899 Other long term (current) drug therapy; Z68.34 Body mass index [BMI] 34.0-34.9, adult
CPT/HCPCS: 36415; 80053; 84443; 84484; 85025; 93005; 96365; 96366; 99285; J3490; J7030; 93010; 99284

== ENCOUNTER 2024-04-09 07:23 | Inpatient (IN) | payer BC, MEDICARE ==
[2024-04-09 08:11] LABS: BASOPHILS ABSOLUTE AUTO 0.1 K/mm3 (0.0-0.2); BASOPHILS PERCENT AUTO 0.4 % (0.0-1.0); EOSINOPHILS ABSOLUTE AUTO 0.1 K/mm3 (0.0-0.4); EOSINOPHILS PERCENT AUTO 0.6 % (0.0-6.0); HEMATOCRIT 47.6 % (42.0-52.0); HEMOGLOBIN 15.8 gm/dl (14.0-18.0); IMMATURE GRAN ABSOLUTE AUTO 0.05 K/mm3 (0.00-0.05); IMMATURE GRAN PERCENT AUTO 0.4 % (0.0-0.4); LYMPHOCYTES ABSOLUTE AUTO 0.8 K/mm3 (1.0-4.8); LYMPHOCYTES PERCENT AUTO 7.2 % (24.0-44.0); MEAN CORPUSCULAR HEMOGLOBIN 29.8 pg (28.0-32.0); MEAN CORPUSCULAR HGB CONC 33.2 g/dl (32.0-36.0); MEAN CORPUSCULAR VOLUME 89.8 fl (83.0-99.0); MEAN PLATELET VOLUME 9.2 fl (9.4-12.4); MONOCYTES ABSOLUTE AUTO 0.7 K/mm3 (0.0-0.8); MONOCYTES PERCENT AUTO 6.4 % (0.0-8.0); NEUTROPHILS ABSOLUTE AUTO 9.5 K/mm3 (1.8-7.7); PLATELET COUNT,PLT 189 K/mm3 (150-400); WHITE BLOOD CELL COUNT,WBC 11.18 K/mm3 (3.9-11.3)
[2024-04-09 08:29] LABS: A/G RATIO 1.3 (1-2); ALBUMIN 3.8 g/dl (3.4-5.0); ANION GAP 14.2 (5-15); BUN/CREATININE RATIO 13.6 (14-18); CALCIUM 9.1 mg/dL (8.5-10.1); CREATININE 1.1 mg/dL (0.7-1.3); EST CRCL DRUG DOSING (CG) 71.53 mL/min; POTASSIUM,K 4.2 mEq/L (3.5-5.1); PROTEIN TOTAL,TP 6.8 g/dl (6.4-8.2)
[2024-04-09] MEDS: Diltiazem 25 MG/5 ML SDV IVPUSH ONE (08:34)
[2024-04-09] MEDS: Diltiazem 125 MG in Sodium Chloride 0.9% 100 ML IV SCH (08:38)
[2024-04-09] MEDS: Sodium Chloride 0.9% 1,000 ML IV SCH (08:39)
[2024-04-09 08:58] LABS: INR 0.99; PROTHROMBIN TIME 10.5 SECONDS (9.7-12.0)
[2024-04-09] MEDS: Furosemide 40 MG/4 ML VIAL IVPUSH ONE (11:50)
[2024-04-09] MEDS: cefTRIAXone 2 GM in Sodium Chloride 0.9% 100 ML IV ONE (11:56)
[2024-04-09] MEDS: Acetaminophen 325 MG Tab PO ONE (12:11)
[2024-04-09] MEDS: Doxycycline 100 MG in Sodium Chloride 0.9% 100 ML IV ONE (12:41)
[2024-04-09] MEDS: Magnesium Sulfate/Water Premix 4 GM in Premix Bag 1 BAG IV ONE (12:43)
[2024-04-09] MEDS: Metoprolol Tartrate 50 MG Tab PO ONE (20:26)
[2024-04-09] MEDS: Doxycycline 100 MG in Sodium Chloride 0.9% 100 ML IV SCH (21:34)
[2024-04-10] MEDS ORDERED: Diltiazem 125 MG in Sodium Chloride 0.9% 100 ML IV SCH (00:15)
[2024-04-10] MEDS: Enoxaparin 40 MG/0.4 ML Syringe SUBCUT SCH (09:09)
[2024-04-10] MEDS: Metoprolol Succinate 50 MG Tab.ER PO SCH (09:09)
[2024-04-10] MEDS: Aspirin 81 MG Tab.EC PO SCH (09:09)
[2024-04-10 09:34] LABS: BASOPHILS ABSOLUTE AUTO 0.1 K/mm3 (0.0-0.2); BASOPHILS PERCENT AUTO 0.8 % (0.0-1.0); EOSINOPHILS ABSOLUTE AUTO 0.1 K/mm3 (0.0-0.4); EOSINOPHILS PERCENT AUTO 1.6 % (0.0-6.0); HEMATOCRIT 47.2 % (42.0-52.0); HEMOGLOBIN 15.7 gm/dl (14.0-18.0); IMMATURE GRAN ABSOLUTE AUTO 0.05 K/mm3 (0.00-0.05); IMMATURE GRAN PERCENT AUTO 0.7 % (0.0-0.4); LYMPHOCYTES ABSOLUTE AUTO 0.9 K/mm3 (1.0-4.8); LYMPHOCYTES PERCENT AUTO 11.8 % (24.0-44.0); MEAN CORPUSCULAR HEMOGLOBIN 29.6 pg (28.0-32.0); MEAN CORPUSCULAR HGB CONC 33.3 g/dl (32.0-36.0); MEAN CORPUSCULAR VOLUME 89.1 fl (83.0-99.0); MEAN PLATELET VOLUME 9.1 fl (9.4-12.4); MONOCYTES ABSOLUTE AUTO 0.6 K/mm3 (0.0-0.8); MONOCYTES PERCENT AUTO 7.6 % (0.0-8.0); NEUTROPHILS ABSOLUTE AUTO 5.6 K/mm3 (1.8-7.7); NEUTROPHILS PERCENT AUTO 77.5 % (41.0-71.0); PLATELET COUNT,PLT 189 K/mm3 (150-400); WHITE BLOOD CELL COUNT,WBC 7.28 K/mm3 (3.9-11.3)
[2024-04-10 10:01] LABS: ANION GAP 11.9 (5-15); BLOOD UREA NITROGEN,BUN 13 mg/dL (7-18); CARBON DIOXIDE,CO2 26 mEq/L (21-32); CHLORIDE,CL 103 mEq/L (98-107); CHOLESTEROL HDL 90 mg/dL (40-59); CHOLESTEROL LDL DIRECT 63 mg/dL (<100); CHOLESTEROL TOTAL 164 mg/dL (<200); ESTIMATED GFR 82 mL/min (>60); GLUCOSE RANDOM 100 mg/dL (70-99); POTASSIUM,K 3.9 mEq/L (3.5-5.1); SODIUM,NA 137 mEq/L (136-145); TRIGLYCERIDES 75 mg/dL (<150)
[2024-04-10] MEDS: cefTRIAXone 1 GM in Sodium Chloride 0.9% 100 ML IV SCH (10:57)
[2024-04-10] MEDS ORDERED: Loperamide 2 MG Cap PO PRN (17:59)
[2024-04-10] MEDS: Metoprolol Tartrate 50 MG Tab PO ONE (18:20)
[2024-04-10] MEDS: Iopamidol 755 Mg/ML 100 ML Bottle IVPUSH ONE (19:58)
[2024-04-10] MEDS: Sodium Chloride 0.9% 100 ML IV SCH (19:58)
[2024-04-10] MEDS: Sodium Chloride 0.9% 10 ML Syringe FLUSH ONE (19:58)
[2024-04-10] MEDS: traZODone 50 MG Tab PO PRN (20:37)
[2024-04-10] MEDS: Acetaminophen 325 MG Tab PO PRN (20:46)
[2024-04-11] MEDS: Diltiazem 25 MG/5 ML SDV IVPUSH ONE (08:22)
[2024-04-11] MEDS: Diltiazem IR 30 MG Tab PO SCH (08:44)
[2024-04-11] MEDS: Diltiazem IR 30 MG Tab PO ONE (10:14)
[2024-04-11 13:03] VITALS: BP 126/80; PULSE 96
[2024-04-11] MEDS: Diltiazem 300 MG Cap.CD PO ONE (13:03)
== END 2024-04-11 14:21 | disposition home or self-care (01) | DRG 308 ==
LOC: JD.ED 07:23 → JD.ICU 16:28 → EEVIPCON 16:28
PROVIDERS: ADMIT Family Medicine; ATTEND Family Medicine
DX: I48.0 Paroxysmal atrial fibrillation (principal); J18.9 Pneumonia, unspecified organism; Z68.42 Body mass index [BMI] 45.0-49.9, adult; E66.9 Obesity, unspecified; Z96.659 Presence of unspecified artificial knee joint; E83.42 Hypomagnesemia; I25.10 Atherosclerotic heart disease of native coronary artery without angina pectoris; H54.7 Unspecified visual loss; Z79.82 Long term (current) use of aspirin; Z79.899 Other long term (current) drug therapy; Z86.711 Personal history of pulmonary embolism; Z87.19 Personal history of other diseases of the digestive system; Z98.890 Other specified postprocedural states
CPT/HCPCS: 36415; 71045; 71045-26; 71275; 71275-26; 80048; 80053; 80061; 83605; 83735; 83880; 84443; 84484; 85025; 85379; 85610; 85730; 87040; 93005; 93010; 93306; 94762; 96365; 96366; 96368; 96375; 96376; 99285; 99285-25; A9270-GY; J0696; J1650; J1940; J3475; J3490; J7030; Q9967